=== PATIENT | female | born 1960 | race Caucasian/White ===

== ENCOUNTER 2019-05-10 05:42 | Emergency (ER) | payer OTHER, SELFPAY ==
[2019-05-10 05:47] VITALS: BP 101/65; PULSE 79; RESP 18; TEMP 37.5; O2SAT 90; BMI 21.5
--- NOTE | 2019-05-10 05:51 | ED_ITS ---
Entered by Lisy Thompson, acting as scribe for Deonte Delgado MD May 10, 2019 05:42 HPI - Fever General: Chief Complaint: Fever Stated Complaint: FLU SYMPTOMS Time Seen by Provider: 05/10/19 05:51 Source: patient Mode of arrival: ambulatory Limitations: no limitations History of Present Illness: HPI Narrative: 58 yo f came to the er pov for fever, cough and body aches. Onset was 4 days ago. Pt states that she hurts all over. She denies any shortness of breath. She has had some nausea along with diarrhea. She denies any worsening improving factors. MD elicited complaint: fever Onset (ago): day(s) (4 days ago) Exacerbating factors: nothing Relieving factors: nothing Associated symptoms: Reports cough, diarrhea, nausea, vomiting and other (fever, body aches); Deny abdominal pain, chest pain, dysuria or headache(s) Treatments prior to arrival fever: acetaminophen and ibuprofen Review of Systems General: Reports: other (negative unless marked) Const: Reports: fever and body aches Eyes: Denies: blurry vision or eye discomfort ENMT: Denies: throat pain or dental pain Card: Denies: chest pain Resp: Reports: non-productive cough GI: Reports: nausea, vomiting and diarrhea; Denies: abdominal pain : Denies: painful urination Musc: Denies: neck pain or back pain Skin/Breast: Denies: rash Neuro: Denies: headache Psych: Denies: depression Pancho/Lymph: Denies: easy bruising All/Imm: Denies: hives PFSH ED PFSH: Social History Smoking and tobacco status: current every day smoker Physical Exam Narrative: EXAM NARRATIVE: normal Const: COMMON NORMALS: no apparent distress, oriented x3 and healthy appearing HENMT: COMMON NORMALS: normocephalic and head/scalp atraumatic HEAD & SCALP: normocephalic and atraumatic Eye: COMMON NORMALS: PERRL and EOMs intact bilaterally PUPIL: Yes PERRL Neck/C-Spine: COMMON NORMALS: full ROM and supple Chest: COMMONS NORMALS: inspection of chest normal and palpation of chest normal Resp: COMMON NORMALS: normal respiratory effort, no retractions, no use of accessory muscles and clear to auscultation bilaterally AUSCULTATION: clear to auscultation bilaterally Cardio: COMMON NORMALS: regular rate, regular rhythm and no murmurs RATE: regular rate RHYTHM: regular rhythm GI: COMMON NORMALS: normal to inspection, nondistended, normoactive bowel sounds, soft to palpation, non-tender and no masses PALPATION: Yes soft Extremity: COMMON NORMALS: normal to inspection and full ROM Neuro: COMMON NORMALS: oriented x3, moves all extremities and no focal motor deficits Psych: COMMON NORMALS: mental status grossly normal, thought process normal and cooperative THOUGHT PROCESS: normal thought process Skin: COMMON NORMALS: no rashes or lesions noted and no wounds GENERAL SKIN EXAM: no rashes or lesions noted Course Vital Signs: Vital signs: Vital Signs Temperature 99.5 F 05/10/19 05:47 Pulse Rate 75 05/10/19 07:38 Respiratory Rate 15 05/10/19 07:38 Blood Pressure 114/74 05/10/19 07:38 Pulse Oximetry 94 05/10/19 07:38 MDM - Fever MDM Narrative: Medical decision making narrative: Patient presents here with fever along with body aches and does have influenza. Patient has no signs of sepsis. White count is slightly low but blood pressure is normal here. X-ray shows no signs of pneumonia. Did offer her Tamiflu and she is to follow-up with primary care doctor for repeat blood work next week and she is return to ER if worsening. Patient understands and agrees to plan. Lab Data: Labs: Lab Results 05/10/19 05/10/19 05/10/19 Range/Units 05:55 06:36 06:36 WBC 2.6 L (4.0-10.0) 10^3/ uL RBC 4.59 (4.1-5.3) 10^6/u L Hgb 14.0 (11.5-15.3) g/dL Hct 42.6 (37.0-47.0) % MCV 92.8 (81-99) fL MCH 30.5 (28.0-34.0) pg MCHC 32.9 (30.0-36.0) g/dL RDW 12.0 L (12.1-15.1) % Plt Count 145 (130-400) 10^3/c mm MPV 10.0 (7.4-10.4) fL Neut % (Auto) 50.3 % Lymph % (Auto) 40.8 % [place] % (Auto) 8.5 % Eos % (Auto) 0.0 % Baso % (Auto) 0.4 % Neut # (Auto) 1.3 L (1.8-7.7) 10^3/u L Lymph # (Auto) 1.1 (0.8-4.8) 10^3/u L [place] # (Auto) 0.2 (0.2-0.9) 10^3/u L Eos # (Auto) 0.0 (0.0-0.8) 10^3/u L Baso # (Auto) 0.0 (0.0-0.1) 10^3/u L Nucleated RBC % (a uto) 0 % Nucleated RBCs # 0.0 /100WBC Sodium 136 (136-145) mmol/L Potassium 4.5 (3.5-5.1) mmol/L Chloride 102 (98-107) mmol/L Carbon Dioxide 22 (22-29) mmol/L Anion Gap 16.5 (5-19) BUN 10 (6-20) mg/dL Creatinine 0.9 (0.5-0.9) mg/dL GFR Calculation 64.5 L (90-130) mL/min Glucose 115 (65-115) mg/dL Calculated Osmolal ity 279 L (285-295) mOsm/k g Calcium 9.0 (8.5-10.5) mg/dL Influenza Type A A g Negative (Negative) POC Influenza B Ag Positive H (Negative) Imaging Data^: CXR: My impression: no acute abnormality Discharge Plan Discharge Patient Disposition: Home, Self-Care Clinical Impression: Influenza Condition: Stable Prescriptions: New Tamiflu 75 mg capsule 75 mg PO BID 5 Days Qty: 10 RF: 0 Discharge Orders: Discharge Order (Routine); Ordered 05/10/19 Ordered By: Deonte Delgado Referrals: Agustin Wright, [Primary Care Provider] - 4-7 days Discharge Diet: Advance as tolerated Discharge Activity: Resume usual activity Patient Instructions: Influenza (ED) Discharge Date/Time: 05/10/19 07:30 Coding Level of Care Code ED Garbage Pick Up Worker for g Fwd The documentation recorded by the Jay goodwin Stephanie Lyn, accurately reflects the service I personally performed and the decisions made by , Deonte Delgado MD May 10, 2019 05:42
--- NOTE | 2019-05-10 05:56 | XR_ITS ---
WS: [id number] XR chest 2V* [id number] REASON FOR EXAM: cough FINDINGS: The heart and mediastinal interfaces were normal. The lung linares are well aerated. No pneumonia, pleural effusion, pulmonary edema, or mass effect. Th ere is evidence of small granuloma in the right hilum well calcified. The hilum and apices are normal. No osseous abnormalities. XR/XR chest 2V* [id number] IMPRESSION: Negative chest for active pathology.
[2019-05-10] MEDS: acetaminophen 500 mg Tablet 1000 MG PO (06:01)
[2019-05-10 06:38] LABS: Influenza A by IFA Negative (Negative); Influenza B by IFA Positive (Negative)
[2019-05-10 06:42] LABS: Basophils % 0.4 %; Hematocrit 42.6 % (37.0-47.0); Lymphocytes # 1.1 10^3/uL (0.8-4.8); Lymphocytes % 40.8 %; Mean Corpuscular HGB Conc 32.9 g/dL (30.0-36.0); Mean Corpuscular Hemoglobin 30.5 pg (28.0-34.0); Mean Corpuscular Volume 92.8 fL (81-99); Monocytes # 0.2 10^3/uL (0.2-0.9); Monocytes % 8.5 %; Neutrophils # 1.3 10^3/uL (1.8-7.7); Neutrophils % 50.3 %; Nucleated Red Blood Cells % 0 %; Platelet Count 145 10^3/cmm (130-400); Red Blood Count 4.59 10^6/uL (4.1-5.3); White Blood Count 2.6 10^3/uL (4.0-10.0)
[2019-05-10] MEDS: sodium chloride 0.9% 1,000 ML 999 ML IV (06:46)
[2019-05-10 06:56] LABS: Anion Gap 16.5 (5-19); Blood Urea Nitrogen 10 mg/dL (6-20); Carbon Dioxide 22 mmol/L (22-29); Chloride 102 mmol/L (98-107); Glomerular Filtration Rate 64.5 mL/min (90-130); Glucose 115 mg/dL (65-115); Osmolality Calculated 279 mOsm/kg (285-295); Potassium 4.5 mmol/L (3.5-5.1); Sodium 136 mmol/L (136-145)
[2019-05-10 07:38] VITALS: BP 114/74; PULSE 75; RESP 15; O2SAT 94
== END 2019-05-10 07:30 | disposition home or self-care (01) ==
PROVIDERS: Emergency Provider Emergency Medicine; Family Provider Family Medicine; PCP Family Medicine
DX: J11.1 Influenza due to unidentified influenza virus with other respiratory manifestations (principal); F17.200 Nicotine dependence, unspecified, uncomplicated
CPT/HCPCS: 71046; 80048; 85025; 87804; 96360; 99282; 99283; J7030

== ENCOUNTER 2019-05-20 11:50 | Emergency (ER) | payer OTHER, SELFPAY ==
[2019-05-20 12:10] VITALS: BP 103/86; PULSE 79; RESP 16; TEMP 37.1; O2SAT 96; BMI 22.1
--- NOTE | 2019-05-20 12:55 | ED_ITS ---
Entered by [id number], acting as scribe for Cory Gilliland MD May 20, 2019 11:50 HPI - Extremity Problem General: Chief complaint: Extremity Problem,Nontraumatic Stated complaint: right leg pain, Time Seen by Provider: 05/20/19 12:48 Source: patient and family Mode of arrival: ambulatory Limitations: no limitations History of Present Illness: MD Complaint: extremity pain Onset (ago): day(s) Pain Consistency: constant Location: right and lower extremity Severity scale (1-10): 8 Quality: aching and other (crushing) Radiation: none Relieving factors: movement Exacerbating factors: range of motion and palpation Associated symptoms: Reports fever(s) (reports just had the flu then had bronchitis after); Deny arthralgias, chest pain, rash or short of breath Context: recent illness and other (Lupus; no hx o dvt) Review of Systems General: Reports: 10 or more systems reviewed and unremarkable except in HPI and below Const: Reports: fever (reports just had the flu then had bronchitis after); Denies: chills, body aches, change in weight, fatigue, malaise, night sweats or diaphoresis ENMT: Denies: throat pain Card: Denies: chest pain, palpitations, edema, swelling of feet/ankles, lightheadedness, syncope, pre-syncope or shortness of breath on exertion Resp: Reports: productive cough; Denies: shortness of breath, pain on inspiration or coughing up blood GI: Denies: abdominal pain, nausea, vomiting, vomiting blood, diarrhea or constipation Musc: Reports: extremity pain, muscle cramps and other (pain in right calf, arch of right foot, behind right knee); Denies: extremity swelling, joint pain, joint swelling, redness, limited range of motion or muscle weakness Skin/Breast: Denies: rash, itching, redness, skin pain, skin tenderness, skin swelling or sores Neuro: Denies: numbness in extremities, weakness in extremities, changes in sensation, lack of coordination, difficulty walking, frequent falls, dizziness, seizure-like activity, involuntary movements or restless legs PFSH ED PFSH: Social History Smoking and tobacco status: current every day smoker Physical Exam Const: COMMON NORMALS: no apparent distress (moderate distress), average body habitus, oriented x3, no limitations, healthy appearing, alert and well nourished EXAM LIMITATIONS: no altered mental status GENERAL APPEARANCE: cooperative, well kempt and well developed NUTRITIONAL APPEARANCE: not obese and not overweight ORIENTATION/CONSCIOUSNESS: Yes awake HENMT: COMMON NORMALS: normocephalic, head/scalp atraumatic, external ears normal and external nose normal HEAD & SCALP: normal to inspection, normocephalic and atraumatic FACE & SINUS: face symmetric NOSE: external nose normal EXTERNAL EAR: Yes external ears normal MOUTH: lip normal; no muffled voice Eye: COMMON NORMALS: EOMs intact bilaterally and conjunctivae normal GENERAL EYE: normal appearance of both eyes CONJUNCTIVA: Yes conjunctivae normal Neck/C-Spine: COMMON NORMALS: no JVD GENERAL: Yes normal visual inspection and Yes trachea midline Resp: COMMON NORMALS: normal respiratory effort, no use of accessory muscles and clear to auscultation bilaterally EFFORT & INSPECTION: Yes able to speak in complete sentences and Yes symmetric chest movement AUSCULTATION: clear to auscultation bilaterally Cardio: COMMON NORMALS: no JVD, regular rate and regular rhythm RATE: regular rate RHYTHM: regular rhythm PERIPHERAL PULSES: radial pulses present GI: COMMON NORMALS: soft to palpation INSPECTION: Yes normal to inspection PALPATION: Yes soft, No tender and No guarding Back/Pelvis: COMMON NORMALS: thoraco-lumbar ROM normal Extremity: COMMON NORMALS: normal to inspection, full ROM, normal capillary refill, no joint enlargement, no clubbing, cyanosis or edema and no pedal edema; negative for no calf tenderness (right calf tenderness--compartment soft and not edematous) GENERAL: Yes normal exam except as noted, Yes calf tenderness, No cyanosis, No deformity, No edema, No mottling, No pallor and No pulses abnormal OTHER: Patient has painless range of motion of the right hip, right knee, right ankle. She has normal strength examination on hip flexion, extension, knee flexion, dorsiflexion and plantar flexion of the foot. Great toe dorsiflexion is normal. Sensation is normal to light touch. DP and PT pulses are easily palpable. No swelling, no redness, no wounds. No varicose veins. Calf on the right side is tender to palpation. She complains of pain in the right arch but it is not reproducible on palpation. No obvious masses in the popliteal region. Neuro: COMMON NORMALS: oriented x3 SENSORIUM/ORIENTATION: Yes alert Psych: COMMON NORMALS: mental status grossly normal, thought process normal, cooperative, affect normal and speech normal APPEARANCE: Yes well kempt SPEECH: Yes normal speech THOUGHT PROCESS: normal thought process Skin: COMMON NORMALS: no rashes or lesions noted, no wounds, skin turgor normal, no jaundice and no mottling GENERAL SKIN EXAM: no rashes or lesions noted and turgor normal Course Vital Signs: Vital signs: Vital Signs Temperature 98.8 F 05/20/19 12:10 Pulse Rate 79 05/20/19 12:10 Respiratory Rate 16 05/20/19 12:10 Blood Pressure 103/86 05/20/19 12:10 Pulse Oximetry 97 05/20/19 12:57 MDM - Extremity (Nontraumatic) MDM Narrative: Medical decision making narrative: 58-year-old female with moderate to severe pain in the right lower extremity. Her pain is in typical areas of DVT with the exception of her right arch which is 1 of her main complaints. There is some myalgia on palpation of the right calf. There are no findings objectively of DVT including no redness, warmth, swelling. There is no evidence of peripheral arterial disease. There is no evidence of joint disease. No evidence of soft tissue injury. I suspect that this is a neuropathy or p erhaps may be some myalgia residual from her influenza. Patient does have lupus and perhaps there is a related myositis. D-dimer was elevated but right lower extremity ultrasound was negative for DVT. White blood cell count was normal. CRP was normal. CK was normal. Patient was given gabapentin and aspirin with moderate relief of symptoms. Unclear etiology but suspect neuropathy. There is no neurovascular compromise. X-ray of the tibia and fibula was unremarkable. Plan to discharge the patient with gabapentin and follow-up outpatient. Lab Data: Labs: Lab Results 05/20/19 05/20/19 05/20/19 Range/Units 13:44 13:44 13:44 WBC 5.5 (4.0-10.0) 10^3/ uL RBC 4.34 (4.1-5.3) 10^6/u L Hgb 12.8 (11.5-15.3) g/dL Hct 39.4 (37.0-47.0) % MCV 90.8 (81-99) fL MCH 29.5 (28.0-34.0) pg MCHC 32.5 (30.0-36.0) g/dL RDW 12.0 L (12.1-15.1) % Plt Count 316 (130-400) 10^3/c mm MPV 9.6 (7.4-10.4) fL Neut % (Auto) 59.9 % Lymph % (Auto) 34.0 % [place] % (Auto) 5.3 % Eos % (Auto) 0.0 % Baso % (Auto) 0.4 % Neut # (Auto) 3.3 (1.8-7.7) 10^3/u L Lymph # (Auto) 1.9 (0.8-4.8) 10^3/u L [place] # (Auto) 0.3 (0.2-0.9) 10^3/u L Eos # (Auto) 0.0 (0.0-0.8) 10^3/u L Baso # (Auto) 0.0 (0.0-0.1) 10^3/u L Nucleated RBC % (a uto) 0 % Nucleated RBCs # 0.0 /100WBC D-Dimer 1.88 H (0-0.59) ug/mIFE U Sodium 142 (136-145) mmol/L Potassium 4.5 (3.5-5.1) mmol/L Chloride 105 (98-107) mmol/L Carbon Dioxide 25 (22-29) mmol/L Anion Gap 16.5 (5-19) BUN 19 (6-20) mg/dL Creatinine 0.8 (0.5-0.9) mg/dL GFR Calculation 73.9 L (90-130) mL/min Glucose 134 H (65-115) mg/dL Calculated Osmolal ity 292 (285-295) mOsm/k g Calcium 9.7 (8.5-10.5) mg/dL Magnesium 2.2 (1.7-2.3) mg/dL Creatine Kinase 162 (26-192) U/L C-Reactive Protein 2.3 (0.0-4.9) mg/L Coding Level of Care Code ED Sweet Dough Mixer for Chg Fwd The documentation recorded by the buddy, [id number], accurately reflects the service I personally performed and the decisions made by me, Cory Gilliland MD May 20, 2019 11:50
--- NOTE | 2019-05-20 12:56 | ED_ITS ---
Entered by Anna Donnelly, acting as scribe for Cory Gilliland MD May 20, 2019 11:50 HPI - Extremity Problem General: Chief complaint: Extremity Problem,Nontraumatic Stated complaint: right leg pain, Time Seen by Provider: 05/20/19 12:48 Source: patient and family Mode of arrival: ambulatory Limitations: no limitations History of Present Illness: MD Complaint: extremity pain (Right leg) Onset (ago): day(s) (yesterday) Pain Consistency: constant Location: right and lower extremity Radiation: none Relieving factors: medication (aspirin) Exacerbating factors: walking and exertion Associated symptoms: Reports fever(s) (since Monday) and other (fever from flu); Deny chest pain or rash Review of Systems General: Reports: 10 or more systems reviewed and unremarkable except in HPI and below Const: Reports: fever (since Monday); Denies: chills Card: Denies: chest pain, palpitations, lightheadedness, syncope or shortness of breath when lying down Resp: Denies: shortness of breath, stridor, pain on inspiration or chest congestion GI: Denies: abdominal pain, difficulty swallowing, heartburn/indigestion, constipation or bloating Musc: Reports: extremity pain Skin/Breast: Reports: skin tenderness; Denies: rash, itching, redness or sensitivity to light PFSH ED PFSH: Social History Smoking and tobacco status: current every day smoker Physical Exam Narrative: EXAM NARRATIVE: negative straight leg raise. Const: COMMON NORMALS: no limitations, alert and well nourished EXAM LIMITATIONS: no altered mental status GENERAL APPEARANCE: cooperative and well developed ORIENTATION/CONSCIOUSNESS: Yes awake; not confused HENMT: COMMON NORMALS: normocephalic, head/scalp atraumatic, external ears normal and external nose normal HEAD & SCALP: normal to inspection, normocephalic and atraumatic FACE & SINUS: face symmetric NOSE: external nose normal EXTERNAL EAR: Yes external ears normal MOUTH: lip normal; no muffled voice Eye: COMMON NORMALS: EOMs intact bilaterally and conjunctivae normal GENERAL EYE: normal appearance of both eyes CONJUNCTIVA: Yes conjunctivae normal Neck/C-Spine: COMMON NORMALS: no JVD GENERAL: Yes normal visual inspection and Yes trachea midline Resp: COMMON NORMALS: normal respiratory effort, no use of accessory muscles and clear to auscultation bilaterally EFFORT & INSPECTION: Yes able to speak in complete sentences and Yes symmetric chest movement AUSCULTATION: clear to auscultation bilaterally Cardio: COMMON NORMALS: no JVD, regular rate and regular rhythm RATE: regular rate RHYTHM: regular rhythm PERIPHERAL PULSES: radial pulses present GI: COMMON NORMALS: soft to palpation INSPECTION: Yes normal to inspection PALPATION: Yes soft, No tender and No guarding : COMMON NORMALS: Yes no CVA tenderness BLADDER/KIDNEY EXAM: Yes no CVA tenderness Back/Pelvis: COMMON NORMALS: no CVA tenderness, thoracic and lumbar spine normal to inspection, no thoracic nor lumbar tenderness, thoraco-lumbar ROM normal and straight leg raise negative bilaterally Extremity: RIGHT LOWER EXTREMITY: Yes knee joint (behind R knee tenderness), Yes lower leg (tenderness) and Yes foot & digits (R arch tenderness) Neuro: COMMON NORMALS: moves all extremities, no focal motor deficits and no sensory deficits noted SENSORIUM/ORIENTATION: Yes alert Psych: COMMON NORMALS: mental status grossly normal, thought process normal, cooperative, affect normal and speech normal SPEECH: Yes normal speech THOUGHT PROCESS: normal thought process Skin: COMMON NORMALS: no rashes or lesions noted, skin turgor normal and no jaundice GENERAL SKIN EXAM: no rashes or lesions noted and turgor normal Course Vital Signs: Vital signs: Vital Signs Temperature 98.8 F 05/20/19 12:10 Pulse Rate 79 05/20/19 12:10 Respiratory Rate 16 05/20/19 12:10 Blood Pressure 103/86 05/20/19 12:10 Pulse Oximetry 97 05/20/19 12:57 MDM - Extremity (Nontraumatic) MDM Narrative: Medical decision making narrative: No evidence of bony lesions, acute neurovascular compromise, DVT, inflammatory etiology, vasculitis, or acute soft tissue injury. Suspect neuropathic pain or possibly residual myositis or muscle cramping Lab Data: Labs: Lab Results 05/20/19 05/20/19 05/20/19 Range/Units 13:44 13:44 13:44 WBC 5.5 (4.0-10.0) 10^3/ uL RBC 4.34 (4.1-5.3) 10^6/u L Hgb 12.8 (11.5-15.3) g/dL Hct 39.4 (37.0-47.0) % MCV 90.8 (81-99) fL MCH 29.5 (28.0-34.0) pg MCHC 32.5 (30.0-36.0) g/dL RDW 12.0 L (12.1-15.1) % Plt Count 316 (130-400) 10^3/c mm MPV 9.6 (7.4-10.4) fL Neut % (Auto) 59.9 % Lymph % (Auto) 34.0 % [place] % (Auto) 5.3 % Eos % (Auto) 0.0 % Baso % (Auto) 0.4 % Neut # (Auto) 3.3 (1.8-7.7) 10^3/u L Lymph # (Auto) 1.9 (0.8-4.8) 10^3/u L [place] # (Auto) 0.3 (0.2-0.9) 10^3/u L Eos # (Auto) 0.0 (0.0-0.8) 10^3/u L Baso # (Auto) 0.0 (0.0-0.1) 10^3/u L Nucleated RBC % (a uto) 0 % Nucleated RBCs # 0.0 /100WBC D-Dimer 1.88 H (0-0.59) ug/mIFE U Sodium 142 (136-145) mmol/L Potassium 4.5 (3.5-5.1) mmol/L Chloride 105 (98-107) mmol/L Carbon Dioxide 25 (22-29) mmol/L Anion Gap 16.5 (5-19) BUN 19 (6-20) mg/dL Creatinine 0.8 (0.5-0.9) mg/dL GFR Calculation 73.9 L (90-130) mL/min Glucose 134 H (65-115) mg/dL Calculated Osmolal ity 292 (285-295) mOsm/k g Calcium 9.7 (8.5-10.5) mg/dL Magnesium 2.2 (1.7-2.3) mg/dL Creatine Kinase 162 (26-192) U/L C-Reactive Protein 2.3 (0.0-4.9) mg/L Discharge Plan Discharge Clinical Impression: Acute pain of right lower extremity, Neuropathic pain Condition: Stable Prescriptions: New gabapentin 100 mg capsule 100 mg PO TID 14 Days Qty: 42 RF: 0 Referrals: Agustin Wright, [Primary Care Provider] - 1-3 days (F/u leg pain and initiation of gabapentin. Unclear etiology; may need neuro w/u.) Discharge Diet: Usual diet Discharge Activity: Resume usual activity Patient Instructions: Leg Cramps (ED), Peripheral Neuropathy (ED) Coding Level of Care Code ED Workers Compensation Examiner for Chg Fwd Exam Comprehensive The documentation recorded by the Andrzej goodwin Bridget Annette, accurately reflects the service I personally performed and the decisions made by , Cory Gilliland MD May 20, 2019 11:50
[2019-05-20 12:57] VITALS: O2SAT 97
--- NOTE | 2019-05-20 13:22 | XR_ITS ---
WS: [id number] XR tibia fibula RT 2V [id number] REASON FOR EXAM: pain, unclear source FINDINGS: The tibia, fibula were normal extending down to the ankle and to the knee. No fractures or other dyscrasias. No soft tissue masses or calcification. XR/XR tibia fibula RT 2V [id number] IMPRESSION: Negative tibia-fibula study.
[2019-05-20 13:51] LABS: Basophils % 0.4 %; Hematocrit 39.4 % (37.0-47.0); Hemoglobin 12.8 g/dL (11.5-15.3); Lymphocytes # 1.9 10^3/uL (0.8-4.8); Mean Corpuscular HGB Conc 32.5 g/dL (30.0-36.0); Mean Corpuscular Hemoglobin 29.5 pg (28.0-34.0); Mean Corpuscular Volume 90.8 fL (81-99); Mean Platelet Volume 9.6 fL (7.4-10.4); Monocytes # 0.3 10^3/uL (0.2-0.9); Monocytes % 5.3 %; Neutrophils # 3.3 10^3/uL (1.8-7.7); Neutrophils % 59.9 %; Nucleated Red Blood Cells % 0 %; Platelet Count 316 10^3/cmm (130-400); Red Blood Count 4.34 10^6/uL (4.1-5.3); White Blood Count 5.5 10^3/uL (4.0-10.0)
[2019-05-20] MEDS: sodium chloride 0.9% 1,000 ML 999 ML IV (13:52)
[2019-05-20] MEDS: gabapentin 100 mg Capsule PO (13:53)
[2019-05-20 14:03] LABS: D Dimer 1.88 ug/mIFEU (0-0.59)
[2019-05-20 14:13] LABS: Anion Gap 16.5 (5-19); Blood Urea Nitrogen 19 mg/dL (6-20); C Reactive Protein 2.3 mg/L (0.0-4.9); Calcium 9.7 mg/dL (8.5-10.5); Carbon Dioxide 25 mmol/L (22-29); Chloride 105 mmol/L (98-107); Creatine Phosphokinase 162 U/L (26-192); Glomerular Filtration Rate 73.9 mL/min (90-130); Glucose 134 mg/dL (65-115); Magnesium 2.2 mg/dL (1.7-2.3); Osmolality Calculated 292 mOsm/kg (285-295); Potassium 4.5 mmol/L (3.5-5.1); Sodium 142 mmol/L (136-145)
--- NOTE | 2019-05-20 14:33 | USCV_ITS ---
Sondra Duval Age: 58 Gender: F : 1960 Exam Date: 05/20/2019 15:19 Ordering Phys: Cory Gilliland MD Technologist: [place] [facility] [place]ication: RT LEG PAIN AND EDEMA HISTORY: Lower extremity swelling. Lower extremity pain. PROCEDURES: Venous duplex imaging was performed in only the right lower extremity. The following venous structures were evaluated: common femoral vein, profunda vein, proximal portion of the greater saphenous vein, superficial femoral vein, and the popliteal vein. In addition, the posterior tibial and peroneal trunk were evaluated. On the right side, the common femoral, superficial femoral, profunda femoral, popliteal, posterior tibial, greater saphenous veins and the peroneal trunk were identified and interrogated in the standard fashion. These veins were found to be easily compressible with spontaneous blood flow. No evidence of insufficiency or thrombus noted. FINDINGS: Normal 2-D Doppler and augmentation and compressibility throughout the lower extremity venous structures. Additional imaging through the proximal calf veins also reveals no thrombus. Limited evaluation of the greater saphenous vein is patent with no thrombus.. CONCLUSIONS Negative right lower extremity deep venous Doppler ultrasound. Dr. Suzanna Lund MD (Electronically Signed) Final Date: 20 May 2019 16:13 S
[2019-05-20] MEDS: aspirin 81 mg Chew Tablet 324 MG PO (15:32)
[2019-05-20 17:14] VITALS: BP 121/69; PULSE 68; RESP 17; O2SAT 97
== END 2019-05-20 17:20 | disposition home or self-care (01) ==
PROVIDERS: Emergency Provider Emergency Medicine; Family Provider Family Medicine; PCP Family Medicine
DX: G57.91 Unspecified mononeuropathy of right lower limb (principal); F17.200 Nicotine dependence, unspecified, uncomplicated
CPT/HCPCS: 36415; 73590; 80048; 82550; 83735; 85025; 85378; 86140; 93971; 96360; 99281; 99283; J7030

== ENCOUNTER → 2019-11-21 10:42 | Outpatient (BNVA) | payer OTHER, SELFPAY | PROVIDERS: Family Provider Family Medicine; PCP Family Medicine; Visit Provider Internal Medicine | DX: M06.9 Rheumatoid arthritis, unspecified (principal); Z11.59 Encounter for screening for other viral diseases; Z11.1 Encounter for screening for respiratory tuberculosis; Z79.899 Other long term (current) drug therapy; M35.00 Sjogren syndrome, unspecified; R21 Rash and other nonspecific skin eruption; F17.210 Nicotine dependence, cigarettes, uncomplicated | CPT/HCPCS: 80053; 81003; 83516; 85025; 85651; 86140; 86480; 86704; 86803; 86812; 87340; 99213 ==

== ENCOUNTER 2019-11-22 09:00 | Outpatient (CLI) | payer OTHER, SELFPAY ==
--- NOTE | 2019-11-22 09:10 | XR_ITS ---
WS: [id number] FOOT LEFT TECHNIQUE: 2 views of the left foot CLINICAL INFORMATION: foot pain COMPARISON: None. FINDINGS: No evidence of acute fracture or dislocation. Normal tarsal metatarsal alignment. Normal calcaneus. N ormal visualized talar dome. No acute findings. XR/XR foot LT 2V [id number] IMPRESSION: Normal left foot.
--- NOTE | 2019-11-22 09:10 | XR_ITS ---
WS: [id number] FOOT RIGHT TECHNIQUE: 2 views of the right foot CLINICAL INFORMATION: foot pain COMPARISON: None. 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 Dorsal hypertrophic spurring . Mild joint space narrowing third, fourth and fifth digits at the PIP and DIP joints. Normal metatar sals. XR/XR foot RT 2V [id number] IMPRESSION: 1. 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 2. Mild joint space narrowing third fourth and fifth digits at the PIP and DIP joints.
--- NOTE | 2019-11-22 09:10 | XR_ITS ---
WS: [id number] TECHNIQUE: 2 views of the left hand CLINICAL INFORMATION: hand pain COMPARISON: None. FINDINGS: Normal metacarpals. Normal MCP joint. Metacarpal heads are normal in appearance. Normal PIP and DIP j oints. No evidence of acute fracture or dislocation. Radiocarpal joint: Normal. Carpal bones: Normal. XR/XR hand LT 2V [id number] IMPRESSION: Normal left hand.
--- NOTE | 2019-11-22 09:10 | XR_ITS ---
WS: [id number] TECHNIQUE: 2 views of the right hand CLINICAL INFORMATION: hand pain COMPARISON: None. FINDINGS: Normal metacarpals. Normal MCP joint. Metacarpal heads are normal in appearance. Normal PIP and DIP j oints. No evidence of acute fracture or dislocation. Tiny amount of hypertrophic spurring along the P IP and DIP joints Radiocarpal joint: Normal. Carpal bones: Normal. XR/XR hand RT 2V [id number] IMPRESSION: Tiny amount hypertrophic spurring along the PIP and DIP joints. No erosive davey ges.
== END 2019-11-22 09:01 | disposition home or self-care (01) ==
PROVIDERS: Family Provider Family Medicine; PCP Family Medicine; Visit Provider Internal Medicine
DX: M79.672 Pain in left foot (principal); M79.671 Pain in right foot; M79.642 Pain in left hand; M79.641 Pain in right hand; M19.071 Primary osteoarthritis, right ankle and foot
CPT/HCPCS: 73120; 73620

== ENCOUNTER 2019-12-24 10:48 | Outpatient (CLI) | payer OTHER, SELFPAY ==
--- NOTE | 2019-12-24 11:12 | MM_ITS ---
WS: [id number] BILATERAL DIGITAL DIAGNOSTIC MAMMOGRAM MAMMOGRAPHY WITH CAD CLINICAL INFORMATION: LUMP OR MASS IN BREAST COMPARISON: November 28, 2017 TECHNIQUE: Bilateral CC, MLO, and ML views. FINDINGS: The breasts are composed of heterogeneous fibroglandular density, which can limit the detection of sm all underlying mass lesions. Punctate and lucent centered calcifications. Palpable marker left breast . No definite underlying mammographic abnormalities. Ultrasound is pending. Right breast appears unchanged. . ULTRASOUND BREAST LEFT TECHNIQUE: Ultrasound left breast focused area of concern. CLINICAL INFORMATION: LUMP OR MASS IN BREAST COMPARISON: FINDINGS: Ultrasound left breast at the 1:00 position in patient directed area. In the area of concern is a hyp oechoic irregular lesion Talller than wide with irregular margins. This measures approximately 3.3 x 3.6x 2.7 mm. Recommend further evaluation with ultrasound-guided biopsy. MM/[place] [id number] IMPRESSION: BI-RADS: 4-Suspicious Finding-Biopsy Should Be Considered FOLLOW UP: US Guided Biopsy Recommended
--- NOTE | 2019-12-24 11:17 | US_ITS ---
WS: [id number] BILATERAL DIGITAL DIAGNOSTIC MAMMOGRAM MAMMOGRAPHY WITH CAD CLINICAL INFORMATION: LUMP OR MASS IN BREAST COMPARISON: November 28, 2017 TECHNIQUE: Bilateral CC, MLO, and ML views. FINDINGS: The breasts are composed of heterogeneous fibroglandular density, which can limit the detection of sm all underlying mass lesions. Punctate and lucent centered calcifications. Palpable marker left breast . No definite underlying mammographic abnormalities. Ultrasound is pending. Right breast appears unchanged. . ULTRASOUND BREAST LEFT TECHNIQUE: Ultrasound left breast focused area of concern. CLINICAL INFORMATION: LUMP OR MASS IN BREAST COMPARISON: FINDINGS: Ultrasound left breast at the 1:00 position in patient directed area. In the area of concern is a hyp oechoic irregular lesion Talller than wide with irregular margins. This measures approximately 3.3 x 3.6x 2.7 mm. Recommend further evaluation with ultrasound-guided biopsy. US/US breast LT limited* [id number] IMPRESSION: BI-RADS: 4-Suspicious Finding-Biopsy Should Be Considered FOLLOW UP: US Guided Biopsy Recommended
== END 2019-12-24 10:49 | disposition home or self-care (01) ==
LOC: RADSHAW 10:56
PROVIDERS: PCP Family Medicine; Visit Provider Family Medicine
DX: N63.21 Unspecified lump in the left breast, upper outer quadrant (principal)
CPT/HCPCS: 76642; 77066

== ENCOUNTER → 2019-12-25 10:33 | Outpatient (BNVA) | payer OTHER, SELFPAY | PROVIDERS: PCP Family Medicine; Visit Provider Internal Medicine | DX: Z79.899 Other long term (current) drug therapy (principal) | CPT/HCPCS: 85025 ==

== ENCOUNTER 2020-01-21 13:11 | Outpatient (CLI) | payer OTHER, SELFPAY ==
--- NOTE | 2020-01-21 | US_ITS ---
WS: [id number] ULTRASOUND-GUIDED LEFT BREAST BIOPSY CLINICAL INFORMATION: LEFT BREAST MASS COMPARISON: None. FINDINGS: The procedure including risks, benefits, and complications were discussed with the patient who agreed to proceed. Using sterile technique patient was prepped and draped in the usual sterile fashion. Aft er 1% lidocaine utilizing real-time ultrasound guidance 5 14-gauge cores were obtained of the left br east lesion at the 1 o'clock position. Subsequently a titanium clip was placed in the biopsy cavity. No immediate complications. Pathology demonstrates Breast, left, mass at 1 o'clock, biopsy: -Mammary duct ectasia with foamy histiocytes. -No malignancy identified. US/[place] [id number] IMPRESSION: 1. Uncomplicated ultrasound-guided left breast biopsy. 2. The pathology demonstrates benign breast tissue. No malignancy identified. BI-RADS: 2-Benign FOLLOW UP: 6 Month Follow-up RECOMMEND 6 MONTH FOLLOW-UP LEFT BREAST DIAGNOSTIC MAMMOGRAM AND ULTRASOUND TO CONFIRM STABILITY.
== END 2020-01-21 13:12 | disposition home or self-care (01) ==
LOC: RAD 13:16
PROVIDERS: PCP Family Medicine; Visit Provider Family Medicine
DX: R92.8 Other abnormal and inconclusive findings on diagnostic imaging of breast (principal); N60.42 Mammary duct ectasia of left breast
CPT/HCPCS: 19083; 88305

== ENCOUNTER → 2020-02-19 08:48 | Outpatient (BNVA) | payer OTHER, SELFPAY | PROVIDERS: PCP Family Medicine; Visit Provider Internal Medicine | DX: M06.9 Rheumatoid arthritis, unspecified (principal); R76.8 Other specified abnormal immunological findings in serum; Z79.899 Other long term (current) drug therapy; Z11.59 Encounter for screening for other viral diseases; M35.00 Sjogren syndrome, unspecified; F17.210 Nicotine dependence, cigarettes, uncomplicated | CPT/HCPCS: 80053; 85025; 85651; 86140; 86704; 87517; 99214 ==

== ENCOUNTER → 2020-03-02 13:00 | Outpatient (BNVA) | payer OTHER, SELFPAY | PROVIDERS: PCP Family Medicine; Referring Provider Internal Medicine; Visit Provider Dermatology | DX: R21 Rash and other nonspecific skin eruption (principal) | CPT/HCPCS: 87220 ==

== ENCOUNTER → 2020-04-17 07:56 | Outpatient (BNVA) | payer OTHER, SELFPAY | PROVIDERS: PCP Family Medicine; Visit Provider Internal Medicine | DX: M06.9 Rheumatoid arthritis, unspecified (principal); M35.00 Sjogren syndrome, unspecified; R21 Rash and other nonspecific skin eruption; R42 Dizziness and giddiness; G62.9 Polyneuropathy, unspecified; B19.10 Unspecified viral hepatitis B without hepatic coma; F17.210 Nicotine dependence, cigarettes, uncomplicated | CPT/HCPCS: 99214 ==

== ENCOUNTER 2020-04-17 09:49 | Outpatient (CLI) | payer OTHER, SELFPAY ==
--- NOTE | 2020-04-17 10:01 | XR_ITS ---
WS: [id number] Exam: XR hip LT 2-3V wo/w pel* [id number] Date/Time of Exam: 04/17/2020 10:20 AM Reason For Exam: M06.9 - Rheumatoid arthritis, unspecified Findings: No fractures or bone anomalies are noted. No unusual soft tissue masses or calcifications are seen. The bony elements of the hip are in adequate alignment. XR/XR hip LT 2-3V wo/w pel* [id number] IMPRESSION: Negative left hip.
--- NOTE | 2020-04-17 10:01 | XR_ITS ---
WS: [id number] Exam: XR lumbar spine 2-3V* [id number] Date/Time of Exam: 04/17/2020 10:20 AM Reason For Exam: M06.9 - Rheumatoid arthritis, unspecified No acute fracture or dislocation. Disc spaces are preserved. Minimal degenerative anterolisthesis of L3 on L4. Facet DJD at L3-4, L4-5 and L5-S1. Posterior elements are otherwise intact. No significant scoliosis. XR/XR lumbar spine 2-3V* [id number] IMPRESSION: 1. No fracture or malalignment. 2. Minimal degenerative anterolisthesis of L3 on L4. Degenerative changes as ab ove.
--- NOTE | 2020-04-17 10:01 | XR_ITS ---
WS: [id number] Exam: XR hip RT 2-3V wo/w pel* [id number] Date/Time of Exam: 04/17/2020 10:20 AM Reason For Exam: M06.9 - Rheumatoid arthritis, unspecified No fracture or dislocation. The joint compartment is relatively well maintained. Minimal degenerative change of the acetabular rim. Normal soft tissues. XR/XR hip RT 2-3V wo/w pel* [id number] IMPRESSION: 1. No fracture. Minimal degenerative change of the acetabular rim.
[2020-04-17 11:39] LABS: Basophils % 0.3 %; Hematocrit 44.3 % (37.0-47.0); Hemoglobin 14.8 g/dL (11.5-15.3); Lymphocytes # 1.3 10^3/uL (0.8-4.8); Lymphocytes % 20.7 %; Mean Corpuscular HGB Conc 33.4 g/dL (30.0-36.0); Mean Corpuscular Volume 92.9 fL (81-99); Mean Platelet Volume 10.1 fL (7.4-10.4); Monocytes # 0.1 10^3/uL (0.2-0.9); Monocytes % 1.8 %; Neutrophils # 4.81 10^3/uL (1.8-7.7); Nucleated Red Blood Cells % 0 %; Platelet Count 269 10^3/cmm (130-400); Red Blood Count 4.77 10^6/uL (4.1-5.3); Red Cell Distribution Width 11.8 % (12.1-15.1); White Blood Count 6.2 10^3/uL (4.0-10.0)
[2020-04-17 12:54] LABS: Alanine Aminotransferase 15 U/L (0-33); Albumin Level 4.5 g/dL (3.5-5.2); Alkaline Phosphatase 76 IU/L (35-105); Anion Gap 15.7 (5-19); Aspartate Amino Transferase 21 U/L (0-32); Blood Urea Nitrogen 17 mg/dL (6-20); C Reactive Protein 0.7 mg/L (0.0-4.9); Calcium 10.1 mg/dL (8.5-10.5); Carbon Dioxide 25 mmol/L (22-29); Chloride 106 mmol/L (98-107); Creatine Phosphokinase 65 U/L (26-192); Globulin 3.5 g/dL (1.3-4.6); Glomerular Filtration Rate 85.9 mL/min (90-130); Glucose 120 mg/dL (65-115); Osmolality Calculated 297 mOsm/kg (285-295); Potassium 4.7 mmol/L (3.5-5.1); Sodium 142 mmol/L (136-145); Total Bilirubin 0.3 mg/dL (0.15-1.2)
[2020-04-17 16:45] LABS: Erythrocyte Sedimentation Rate 18 mm/hr (0-15)
[2020-04-20 11:57] LABS: Cyclic Citrullinated Peptide <16 UNITS
== END 2020-04-17 09:50 | disposition home or self-care (01) ==
PROVIDERS: PCP Family Medicine; Visit Provider Internal Medicine
DX: M06.9 Rheumatoid arthritis, unspecified (principal); D86.9 Sarcoidosis, unspecified
CPT/HCPCS: 72100; 73502; 80053; 82550; 85025; 85651; 86140; 86431

== ENCOUNTER → 2020-05-08 13:41 | Outpatient (BNVA) | payer OTHER, SELFPAY | PROVIDERS: PCP Family Medicine; Visit Provider Specialist | DX: M54.2 Cervicalgia (principal); M35.9 Systemic involvement of connective tissue, unspecified; G96.00 Cerebrospinal fluid leak, unspecified; M35.00 Sjogren syndrome, unspecified; F17.210 Nicotine dependence, cigarettes, uncomplicated | CPT/HCPCS: 99203; 99204 ==

== ENCOUNTER → 2020-05-20 10:57 | Outpatient (BNVA) | payer OTHER, SELFPAY | PROVIDERS: PCP Family Medicine; Visit Provider Internal Medicine | DX: Z79.899 Other long term (current) drug therapy (principal); M35.00 Sjogren syndrome, unspecified; M06.9 Rheumatoid arthritis, unspecified; M19.90 Unspecified osteoarthritis, unspecified site | CPT/HCPCS: 36415; 80053; 85025; 85651; 86140 ==

== ENCOUNTER 2020-06-08 10:19 | Outpatient (CLI) | payer OTHER, SELFPAY ==
--- NOTE | 2020-06-08 10:30 | MR_ITS ---
WS: [id number] MRI CERVICAL SPINE NONCONTRAST HISTORY: M54.2 - Cervicalgia COMPARISON: None available. Technique: Multiplanar, multisequence noncontrast imaging of the cervical spine. Straightening and slight reversal normal cervical lordosis. Reversal is centered at C4. No acute natalie ow edema. Remote minimal fracture involving the superior endplate of C7 without retropulsion. Signal within the cervical cord is normal. Visualized posterior fossa is unremarkable. Craniocervical junction, C1 and C2 relationship, odontoid process and soft tissues are normal. C2-C3: Normal. C3-C4: Small posterior vertebral body osteophytes with very slight encroachment upon the ventral thec al sac. No significant stenosis. C4-C5: Mild osteophytic ridging with a shallow central disc or osteophyte. Effacement of the ventral the CSF with no high-grade stenosis. C5-C6: Diffuse osteophytic ridging with small disc osteophyte complexes. Effacement of ventral CSF du e to disc osteophyte disease with mild central and bilateral foraminal stenosis. C6-C7: Disc osteophyte complexes extend into the foramen bilaterally causing mild foraminal stenosis, greater on the RIGHT than the LEFT. C7-T1: Normal. Paraspinal soft tissue are normal. MR/MR cervical spin wo con* [id number] IMPRESSION: 1. Straightening with reversal normal cervical lordosis centered at C7. 2. Mild bilateral foraminal stenosis at C6-7 due to disc osteophyte disease, R IGHT foraminal stenosis greater than LEFT. 3. Mild central and bilateral foraminal stenosis at C5-6. 4. Most significant disc osteophyte complexes at the C5-6 level centrally and extending into the foramen. 5. Very slight encroachment upon the ventral thecal sac at C3-4 and C4-5.
--- NOTE | 2020-06-08 10:30 | MR_ITS ---
WS: [id number] MRI BRAIN WITH AND WITHOUT CONTRAST HISTORY: M35.00 - Sicca syndrome, unspecified COMPARISON: 09/16/2013 TECHNIQUE: Multiplanar imaging performed through the brain with MultiHance 20 ml's IV. No acute infarcts are seen. Molina-white matter differentiation is well preserved. No susceptibility artifacts or prior lacunar infarcts. There are a few scattered T2 and FLAIR signal hyperintensities, slightly greater on the LEFT with mild progression since 09/16/2013. No prior infarc t. Ventricles and extra-axial spaces are normal. Clivus and pituitary gland are normal. Visualized posterior fossa and brainstem are also normal. Postcontrast images are negative for masses or vascular malformations. Dural venous sinuses are normal. Paranasal sinuses: Well aerated with no significant disease. Mastoid air cells: Normal. Visualized parotid glands are normal. Calvarium and scalp: Normal. MR/MR head wo/w con [id number] IMPRESSION: 1. No acute infarct or mass. 2. Mild chronic microvascular ischemic changes, slightly greater involving the LEFT periventricular white matter and mild progression since 2013.
[2020-06-08] MEDS: gadobenate dimeglumine 20 mL vial IV (11:42)
== END 2020-06-08 10:20 | disposition home or self-care (01) ==
LOC: RADWPI 10:26
PROVIDERS: PCP Family Medicine; Visit Provider Specialist
DX: M54.2 Cervicalgia (principal); M35.00 Sjogren syndrome, unspecified; M25.78 Osteophyte, vertebrae; M48.02 Spinal stenosis, cervical region
CPT/HCPCS: 70553; 72141; A9577

== ENCOUNTER → 2020-06-23 08:09 | Outpatient (BNVA) | payer OTHER, SELFPAY | PROVIDERS: PCP Family Medicine; Referring Provider Specialist; Visit Provider Orthopaedic Surgery | DX: M47.892 Other spondylosis, cervical region (principal); M54.2 Cervicalgia | CPT/HCPCS: 72050 ==

== ENCOUNTER → 2020-07-01 09:38 | Outpatient (BNVA) | payer OTHER, SELFPAY | PROVIDERS: PCP Family Medicine; Referring Provider Orthopaedic Surgery; Visit Provider Anesthesiology Pain Medicine | DX: G62.9 Polyneuropathy, unspecified (principal); M54.2 Cervicalgia; M79.601 Pain in right arm; M79.604 Pain in right leg; F17.210 Nicotine dependence, cigarettes, uncomplicated | CPT/HCPCS: 99205 ==

== ENCOUNTER 2020-07-28 10:19 | Outpatient (CLI) | payer OTHER, SELFPAY ==
[2020-07-28 10:54] LABS: Basophils % 0.4 %; Hematocrit 43.9 % (37.0-47.0); Hemoglobin 14.5 g/dL (11.5-15.3); Lymphocytes # 1.5 10^3/uL (0.8-4.8); Mean Corpuscular Hemoglobin 31.5 pg (28.0-34.0); Mean Corpuscular Volume 95.4 fL (81-99); Monocytes # 0.4 10^3/uL (0.2-0.9); Monocytes % 8.1 %; Neutrophils # 2.59 10^3/uL (1.8-7.7); Neutrophils % 58.3 %; Nucleated Red Blood Cells % 0 %; Platelet Count 239 10^3/cmm (130-400); White Blood Count 4.5 10^3/uL (4.0-10.0)
[2020-07-28 11:57] LABS: Erythrocyte Sedimentation Rate 28 mm/hr (0-15)
[2020-07-28 20:19] LABS: Alanine Aminotransferase 12 U/L (0-33); Albumin Level 4.2 g/dL (3.5-5.2); Alkaline Phosphatase 60 IU/L (35-105); Anion Gap 17.5 (5-19); Aspartate Amino Transferase 20 U/L (0-32); Blood Urea Nitrogen 15 mg/dL (6-20); C Reactive Protein 0.7 mg/L (0.0-4.9); Calcium 9.2 mg/dL (8.5-10.5); Carbon Dioxide 25 mmol/L (22-29); Chloride 106 mmol/L (98-107); Globulin 2.8 g/dL (1.3-4.6); Glomerular Filtration Rate 73.7 mL/min (90-130); Glucose 91 mg/dL (65-115); Osmolality Calculated 298 mOsm/kg (285-295); Potassium 4.5 mmol/L (3.5-5.1); Sodium 144 mmol/L (136-145); Total Bilirubin 0.5 mg/dL (0.15-1.2)
== END 2020-07-28 10:20 | disposition home or self-care (01) ==
PROVIDERS: PCP Family Medicine; Visit Provider Internal Medicine
DX: M06.9 Rheumatoid arthritis, unspecified (principal); M35.00 Sjogren syndrome, unspecified; Z79.899 Other long term (current) drug therapy
CPT/HCPCS: 36415; 80053; 85025; 85651; 86140

== ENCOUNTER → 2020-08-03 14:55 | Outpatient (BNVA) | payer OTHER, SELFPAY | PROVIDERS: PCP Family Medicine; Visit Provider Internal Medicine | DX: M06.9 Rheumatoid arthritis, unspecified (principal); M35.00 Sjogren syndrome, unspecified; F17.210 Nicotine dependence, cigarettes, uncomplicated | CPT/HCPCS: 99214 ==

== ENCOUNTER → 2020-10-01 11:03 | Outpatient (BNVA) | payer OTHER, SELFPAY | PROVIDERS: PCP Family Medicine; Visit Provider Internal Medicine | DX: M06.9 Rheumatoid arthritis, unspecified (principal); M35.00 Sjogren syndrome, unspecified; Z79.899 Other long term (current) drug therapy | CPT/HCPCS: 36415; 80053; 85025; 86140 ==

== ENCOUNTER → 2020-10-15 10:54 | Outpatient (BNVA) | payer OTHER, SELFPAY | PROVIDERS: PCP Family Medicine; Visit Provider Internal Medicine | DX: R76.8 Other specified abnormal immunological findings in serum (principal); G96.00 Cerebrospinal fluid leak, unspecified; M35.00 Sjogren syndrome, unspecified; M06.9 Rheumatoid arthritis, unspecified; Z79.899 Other long term (current) drug therapy | CPT/HCPCS: 36415; 80053; 85025; 85651; 86140 ==

== ENCOUNTER → 2020-10-19 14:53 | Outpatient (BNVA) | payer OTHER, SELFPAY | PROVIDERS: PCP Family Medicine; Visit Provider Internal Medicine | DX: M06.9 Rheumatoid arthritis, unspecified (principal); M35.00 Sjogren syndrome, unspecified; R21 Rash and other nonspecific skin eruption; R11.0 Nausea; F17.210 Nicotine dependence, cigarettes, uncomplicated | CPT/HCPCS: 99213; 99214 ==

== ENCOUNTER → 2020-12-23 16:02 | Outpatient (BNVA) | payer OTHER, SELFPAY | PROVIDERS: PCP Family Medicine; Visit Provider Internal Medicine | DX: G96.00 Cerebrospinal fluid leak, unspecified (principal); M35.00 Sjogren syndrome, unspecified; M06.9 Rheumatoid arthritis, unspecified; Z79.899 Other long term (current) drug therapy | CPT/HCPCS: 36415; 80053; 84550; 85025; 85651; 86140 ==

== ENCOUNTER → 2021-02-09 08:44 | Outpatient (BNVA) | payer OTHER, SELFPAY | PROVIDERS: PCP Family Medicine; Visit Provider Internal Medicine | DX: Z79.899 Other long term (current) drug therapy (principal); G62.9 Polyneuropathy, unspecified; G96.00 Cerebrospinal fluid leak, unspecified; M06.9 Rheumatoid arthritis, unspecified; M35.00 Sjogren syndrome, unspecified; M35.9 Systemic involvement of connective tissue, unspecified | CPT/HCPCS: 36415; 80053; 82607; 83735; 84100; 84207; 84443; 85025; 85651; 86140 ==

== ENCOUNTER → 2021-02-17 15:02 | Outpatient (BNVA) | payer OTHER, SELFPAY | PROVIDERS: PCP Family Medicine; Visit Provider Internal Medicine | DX: M06.9 Rheumatoid arthritis, unspecified (principal); M48.00 Spinal stenosis, site unspecified; R29.6 Repeated falls; R76.8 Other specified abnormal immunological findings in serum; R79.89 Other specified abnormal findings of blood chemistry; F17.210 Nicotine dependence, cigarettes, uncomplicated | CPT/HCPCS: 99214 ==

== ENCOUNTER 2021-05-05 10:15 | Outpatient (CLI) | payer OTHER, SELFPAY ==
[2021-05-05 10:46] LABS: Basophils % 0.5 %; Hematocrit 41.9 % (37.0-47.0); Lymphocytes # 1.5 10^3/uL (0.8-4.8); Lymphocytes % 23.4 %; Mean Corpuscular HGB Conc 33.4 g/dL (30.0-36.0); Mean Corpuscular Hemoglobin 32.6 pg (28.0-34.0); Mean Corpuscular Volume 97.7 fl (81-99); Mean Platelet Volume 10.2 fL (7.4-10.4); Monocytes # 0.4 10^3/uL (0.2-0.9); Monocytes % 5.6 %; Neutrophils # 4.61 10^3/uL (1.8-7.7); Neutrophils % 70.2 %; Nucleated Red Blood Cells % 0 %; Platelet Count 232 10^3/cmm (130-400); Red Blood Count 4.29 10^6/uL (4.1-5.3); Red Cell Distribution Width 13.6 % (12.1-15.1); White Blood Count 6.6 10^3/uL (4.0-10.0)
[2021-05-05 10:54] LABS: Erythrocyte Sedimentation Rate 3 mm/hr (0-15)
[2021-05-05 11:03] LABS: Alanine Aminotransferase 14 U/L (0-33); Albumin Level 4.2 g/dL (3.5-5.2); Alkaline Phosphatase 66 IU/L (35-105); Anion Gap 15.6 (5-19); Aspartate Amino Transferase 16 U/L (0-32); Blood Urea Nitrogen 16 mg/dL (6-20); Calcium 9.9 mg/dL (8.5-10.5); Carbon Dioxide 25 mmol/L (22-29); Chloride 107 mmol/L (98-107); Globulin 3.1 g/dL (1.3-4.6); Glomerular Filtration Rate 85.6 mL/min (90-130); Glucose 106 mg/dL (65-115); Iron 65 ug/dL (37-145); Osmolality Calculated 298 mOsm/kg (285-295); Potassium 4.6 mmol/L (3.5-5.1); Sodium 143 mmol/L (136-145); Total Bilirubin 0.5 mg/dL (0.15-1.2); Total Protein 7.3 g/dL (6.6-8.7); Uric Acid 5.4 mg/dL (2.4-5.7)
[2021-05-05 11:19] LABS: 25 Hydroxy Vitamin D 86 ng/mL (30-100)
[2021-05-09 20:08] LABS: Vitamin B1(Thiamin) Plas/Ser 16 nmol/L (8-30)
== END 2021-05-05 10:16 | disposition home or self-care (01) ==
PROVIDERS: PCP Family Medicine; Visit Provider Internal Medicine
DX: G37.9 Demyelinating disease of central nervous system, unspecified (principal); M06.9 Rheumatoid arthritis, unspecified; M35.00 Sjogren syndrome, unspecified; M35.9 Systemic involvement of connective tissue, unspecified; R11.0 Nausea; W19.XXXA Unspecified fall, initial encounter; R42 Dizziness and giddiness
CPT/HCPCS: 36415; 80053; 82306; 83540; 84425; 84550; 85025; 85651; 86140

== ENCOUNTER 2021-06-28 12:02 | Outpatient (CLI) | payer OTHER, SELFPAY ==
[2021-06-28 12:47] LABS: Basophils % 0.3 %; Eosinophils # 0.2 10^3/uL (0.0-0.8); Eosinophils % 2.6 %; Hematocrit 42.4 % (37.0-47.0); Hemoglobin 14.4 g/dL (11.5-15.3); Lymphocytes # 1.9 10^3/uL (0.8-4.8); Lymphocytes % 33.4 %; Mean Corpuscular Hemoglobin 33.1 pg (28.0-34.0); Mean Corpuscular Volume 97.5 fl (81-99); Mean Platelet Volume 10.3 fL (7.4-10.4); Monocytes # 0.3 10^3/uL (0.2-0.9); Monocytes % 4.3 %; Neutrophils # 3.42 10^3/uL (1.8-7.7); Neutrophils % 59.2 %; Nucleated Red Blood Cells % 0 %; Platelet Count 277 10^3/cmm (130-400); Red Blood Count 4.35 10^6/uL (4.1-5.3); Red Cell Distribution Width 13.1 % (12.1-15.1); White Blood Count 5.8 10^3/uL (4.0-10.0)
[2021-06-28 13:20] LABS: Alanine Aminotransferase 15 U/L (0-33); Albumin Level 4.4 g/dL (3.5-5.2); Alkaline Phosphatase 75 IU/L (35-105); Aspartate Amino Transferase 19 U/L (0-32); Blood Urea Nitrogen 12 mg/dL (6-20); Calcium 9.7 mg/dL (8.5-10.5); Carbon Dioxide 25 mmol/L (22-29); Chloride 102 mmol/L (98-107); Creatine Phosphokinase 53 U/L (26-192); Globulin 2.8 g/dL (1.3-4.6); Glomerular Filtration Rate 73.4 mL/min (90-130); Glucose 102 mg/dL (65-115); Osmolality Calculated 286 mOsm/kg (285-295); Sodium 138 mmol/L (136-145); Total Bilirubin 0.3 mg/dL (0.15-1.2); Total Protein 7.2 g/dL (6.6-8.7); Uric Acid 5.6 mg/dL (2.4-5.7)
[2021-06-28 13:21] LABS: Erythrocyte Sedimentation Rate 16 mm/hr (0-15); Slide Review Slide Review Perform
[2021-06-28 13:29] LABS: Anion Gap 15.3 (5-19); Potassium 4.3 mmol/L (3.5-5.1)
[2021-06-29 12:51] LABS: COMPLEMENT COMPONENT C3C 133 mg/dL (83-193); COMPLEMENT COMPONENT C4C 23 mg/dL (15-57)
[2021-06-29 13:56] LABS: THYROID PEROXIDASE ANTIBODIES <1 IU/mL (<9)
[2021-06-29 14:26] LABS: CENTROMERE B ANTIBODY <1.0 NEG AI (<1.0 NEG); JO-1 ANTIBODY <1.0 NEG AI (<1.0 NEG); RNP ANTIBODY <1.0 NEG AI (<1.0 NEG); SCL-70 ANTIBODY <1.0 NEG AI (<1.0 NEG); SJOGREN'S ANTIBODY (SS-A) >8.0 POS AI (<1.0 NEG); SM ANTIBODY <1.0 NEG AI (<1.0 NEG); SS-B 1.1 POS AI (<1.0 NEG)
[2021-06-30 12:22] LABS: ANA SCREEN, IFA POSITIVE (NEGATIVE)
[2021-06-30 15:43] LABS: DNA AB (DS) CRITHIDIA,IFA NEGATIVE (NEGATIVE)
[2021-06-30 15:58] LABS: COMPLEMENT, TOTAL (CH50) >60 U/mL (31-60)
[2021-07-01 13:08] LABS: Anti-Nuclear AB Pattern #2 Nuclear, Speckled
== END 2021-06-28 12:03 | disposition home or self-care (01) ==
PROVIDERS: PCP Family Medicine; Visit Provider Internal Medicine
DX: G62.9 Polyneuropathy, unspecified (principal); M06.9 Rheumatoid arthritis, unspecified; M35.00 Sjogren syndrome, unspecified; M35.9 Systemic involvement of connective tissue, unspecified; Z79.899 Other long term (current) drug therapy
CPT/HCPCS: 80053; 82550; 84182; 84550; 85025; 85651; 86140; 86160; 86162; 86235; 86255; 86376

== ENCOUNTER → 2021-07-12 10:47 | Outpatient (BNVA) | payer OTHER, SELFPAY | PROVIDERS: PCP Family Medicine; Visit Provider Internal Medicine | DX: M48.00 Spinal stenosis, site unspecified (principal); R79.89 Other specified abnormal findings of blood chemistry; G62.9 Polyneuropathy, unspecified; M06.9 Rheumatoid arthritis, unspecified; G25.81 Restless legs syndrome; R21 Rash and other nonspecific skin eruption; M35.00 Sjogren syndrome, unspecified; L29.9 Pruritus, unspecified; R53.1 Weakness | CPT/HCPCS: 36415; 82550; 82607; 82728; 83516; 83540; 84100; 84550 ==

== ENCOUNTER 2021-07-28 09:59 | Outpatient (CLI) | payer OTHER, SELFPAY ==
[2021-08-02 19:41] LABS: Acetylcholine Receptor Binding <0.30 nmol/L
[2021-08-02 22:17] LABS: Acetylcholine Receptor Block <15 (<15)
[2021-08-12 19:23] LABS: Acetylcholine Recept Modulatin 8
== END 2021-07-28 10:00 | disposition home or self-care (01) ==
LOC: LAB 10:00
PROVIDERS: PCP Family Medicine; Visit Provider Specialist
DX: G70.00 Myasthenia gravis without (acute) exacerbation (principal)
CPT/HCPCS: 36415; 83516; 83519

== ENCOUNTER 2021-08-10 13:23 | Outpatient (CLI) | payer OTHER, SELFPAY ==
--- NOTE | 2021-08-10 13:45 | MR_ITS ---
WS: [id number] MRI LUMBAR SPINE NONCONTRAST TECHNIQUE: Sagittal T1, T2 and STIR imaging. Axial T1 and T2 imaging. CLINICAL INFORMATION: M48.00 - Spinal stenosis, site unspecified COMPARISON: None. FINDINGS: Mild lumbar curve. No acute compression. No high-grade central canal stenosis. Slight anterolisthesis L3 on L4 and L5 on S1. Annular fissure L4-L5. L1-L2: Normal. L2-L3: No significant disc bulging. Mild facet arthropathy. Spinal canal and foramen are patent. L3-L4: Grade 1 anterolisthesis. Slight narrowing of the subarticular recess bilaterally. Moderate fac et arthropathy. Mild central canal stenosis. Small LEFT foraminal protrusion with mild LEFT foraminal narrowing. L4-L5: Mild annular bulging. Tiny central protrusion with tiny annular fissure. Mild LEFT and no sign ificant RIGHT foraminal narrowing. Moderate facet arthropathy. L5-S1: Mild disc bulging with osteophytic ridging. Slight anterolisthesis L5 on S1. Slight contact of the S1 nerve roots RIGHT greater than LEFT. Foramen are patent. Visualized pelvic bony structures: Normal. Paravertebral soft tissues: Normal. MR/MR lumbar spine wo con* [id number] IMPRESSION: 1. Mild lumbar curve. No acute compression. No high-grade central canal stenos is. 2. Grade 1 anterolisthesis L3 on L4 and L5 on S1. 3. Shallow central protrusion L4-L5 with a small annular fissure. Slight narro wing of the subarticular recess bilaterally with impingement on the traversing L5 nerve roots. 4. Mild central canal stenosis L3-L4. Narrowing of the LEFT greater than RIGHT subarticular recess. Mild LEFT foraminal narrowing. 5. Mild LEFT L4-L5 foraminal narrowing. 6. Mild disc osteophyte complex L5-S1 with slight impingement on the RIGHT S1 nerve root. 7. Moderate facet arthropathy L3-L5.
== END 2021-08-10 13:24 | disposition home or self-care (01) ==
LOC: RAD 13:24
PROVIDERS: PCP Family Medicine; Visit Provider Internal Medicine
DX: G62.9 Polyneuropathy, unspecified (principal); M06.9 Rheumatoid arthritis, unspecified; R79.89 Other specified abnormal findings of blood chemistry; M51.26 Other intervertebral disc displacement, lumbar region; M48.061 Spinal stenosis, lumbar region without neurogenic claudication; M47.816 Spondylosis without myelopathy or radiculopathy, lumbar region
CPT/HCPCS: 72148

== ENCOUNTER → 2021-09-13 15:00 | Outpatient (BNVA) | payer OTHER, SELFPAY | PROVIDERS: PCP Family Medicine; Visit Provider Internal Medicine | DX: M48.00 Spinal stenosis, site unspecified (principal); R53.1 Weakness; W57.XXXA Bitten or stung by nonvenomous insect and other nonvenomous arthropods, initial encounter; M06.9 Rheumatoid arthritis, unspecified; R29.898 Other symptoms and signs involving the musculoskeletal system | CPT/HCPCS: 36415; 80053; 81003; 85651; 86140; 86618; 86666; 86757 ==

== ENCOUNTER 2021-11-29 11:30 | Outpatient (CLI) | payer MEDICARE, OTHER, SELFPAY ==
[2021-11-29 12:01] LABS: Basophils % 0.4 %; Eosinophils # 0.2 10^3/uL (0.0-0.8); Eosinophils % 3.2 %; Hematocrit 41.9 % (37.0-47.0); Hemoglobin 14.1 g/dL (11.5-15.3); Lymphocytes # 1.6 10^3/uL (0.8-4.8); Lymphocytes % 27.5 %; Mean Corpuscular HGB Conc 33.7 g/dL (30.0-36.0); Mean Corpuscular Hemoglobin 31.8 pg (28.0-34.0); Mean Corpuscular Volume 94.6 fl (81-99); Mean Platelet Volume 10.1 fL (7.4-10.4); Monocytes # 0.4 10^3/uL (0.2-0.9); Monocytes % 6.9 %; Neutrophils # 3.49 10^3/uL (1.8-7.7); Neutrophils % 61.8 %; Nucleated Red Blood Cells % 0 %; Platelet Count 254 10^3/cmm (130-400); Red Blood Count 4.43 10^6/uL (4.1-5.3); White Blood Count 5.6 10^3/uL (4.0-10.0)
[2021-11-29 12:08] LABS: Erythrocyte Sedimentation Rate 8 mm/hr (0-15)
[2021-11-29 12:44] LABS: Alanine Aminotransferase 20 U/L (0-33); Albumin Level 4.1 g/dL (3.5-5.2); Alkaline Phosphatase 65 U/L (35-105); Anion Gap 14.4 (5-19); Aspartate Amino Transferase 23 U/L (0-32); Blood Urea Nitrogen 11 mg/dL (8-23); Calcium 9.7 mg/dL (8.5-10.5); Carbon Dioxide 27 mmol/L (22-29); Chloride 105 mmol/L (98-107); Globulin 3.2 g/dL (1.3-4.6); Glomerular Filtration Rate 73.2 mL/min (90-130); Glucose 97 mg/dL (65-115); Osmolality Calculated 293 mOsm/kg (285-295); Potassium 4.4 mmol/L (3.5-5.1); Sodium 142 mmol/L (136-145); Total Bilirubin 0.5 mg/dL (0.15-1.2); Total Protein 7.3 g/dL (6.6-8.7)
== END 2021-11-29 11:31 | disposition home or self-care (01) ==
LOC: LAB 11:32
PROVIDERS: PCP Family Medicine; Visit Provider Internal Medicine
DX: M06.9 Rheumatoid arthritis, unspecified (principal); M35.00 Sjogren syndrome, unspecified; R21 Rash and other nonspecific skin eruption
CPT/HCPCS: 36415; 80053; 85025; 85651; 86140

== ENCOUNTER 2022-04-01 07:19 | Outpatient (CLI) | payer MEDICARE, OTHER, SELFPAY ==
--- NOTE | 2022-04-01 | MR_ITS ---
WS: [id number] MRI THORACIC SPINE without HISTORY: STENOSIS COMPARISON: None available. TECHNIQUE: Multiplanar sequences are performed in sagittal and axial planes. Mild RIGHT curvature thoracic spine. Posterior alignment is otherwise normal. No signal abnormality w ithin the cord. There is no cord atrophy or enlargement. No syrinx. T1-2: Normal. T2-3: Normal. T3-4: Normal. T4-5: Normal. T5-6: Normal. T6-7: Normal. T7-8: Normal. T8-9: Normal. T9-10: Normal. T10-11: Mild facet joint arthritis. Small amount of fluid in the RIGHT facet joint. No significant s tenosis. T11-12: Normal. Paravertebral soft tissues are negative. MR/MR thoracic spin wo con* [id number] IMPRESSION: 1. No significant central or foraminal stenosis within the thoracic spine. 2. No thoracic disc protrusions.
--- NOTE | 2022-04-01 | MR_ITS ---
WS: [id number] MRI CERVICAL SPINE NONCONTRAST HISTORY: Stenosis, LEFT upper extremity atrophy. COMPARISON: 06/08/2020 Technique: Multiplanar, multisequence noncontrast imaging of the cervical spine. Straightening and reversal the normal cervical lordosis. Reversal centered at C4. Mild elongation of the cervical cord due to reversal. Mild disc space narrowing and desiccation. C6 retrolisthesis by 3 mm. Signal within the cervical cord is normal. Visualized posterior fossa is unremarkable. Craniocervical junction, C1 and C2 relationship, odontoid process and soft tissues are normal. C2-C3: Normal. C3-C4: Small vertebral body osteophytes. No significant stenosis or change. Minimal encroachment upon the ventral thecal sac. C4-C5: Mild disc bulging. No significant stenosis. No disc protrusion identified today. C5-C6: Diffuse osteophytic ridging and disc bulging. Mild bilateral facet joint arthritis. Mild centr al and bilateral foraminal stenosis. Not significantly progressed. C6-C7: Mild annular disc bulging with disc osteophyte complexes bilaterally. Slightly larger disc ost eophyte complex in the proximal LEFT foramen. Mild bilateral foraminal narrowing, RIGHT greater than LEFT. Similar to the prior study. C7-T1: Normal. Paraspinal soft tissue are normal. MR/MR cervical spin wo con* [id number] IMPRESSION: 1. Mild progression of spondylitic changes in the cervical spine since 06/09/19 21. 2. No high-grade central or foraminal stenosis. 3. Mild central and bilateral foraminal stenosis at C5-6 , not significantly c hanged. 4. Mild bilateral foraminal stenosis at C6-7 due to disc osteophyte complex, g reater on the RIGHT. 5. Reversal of the normal cervical lordosis.
== END 2022-04-01 07:20 | disposition home or self-care (01) ==
LOC: RAD 07:19
PROVIDERS: PCP Family Medicine; Visit Provider Physical Medicine & Rehabilitation
DX: M48.02 Spinal stenosis, cervical region (principal)
CPT/HCPCS: 72141; 72146

== ENCOUNTER 2022-04-07 09:40 | Outpatient (CLI) | payer MEDICARE, OTHER, SELFPAY ==
[2022-04-07 10:12] LABS: Basophils % 0.2 %; Hematocrit 43.7 % (37.0-47.0); Hemoglobin 14.6 g/dL (11.5-15.3); Lymphocytes # 1.5 10^3/uL (0.8-4.8); Lymphocytes % 31.7 %; Mean Corpuscular HGB Conc 33.4 g/dL (30.0-36.0); Mean Corpuscular Hemoglobin 31.8 pg (28.0-34.0); Mean Corpuscular Volume 95.2 fl (81-99); Mean Platelet Volume 10.1 fL (7.4-10.4); Monocytes # 0.3 10^3/uL (0.2-0.9); Monocytes % 7.3 %; Neutrophils % 60.6 %; Nucleated Red Blood Cells % 0 %; Platelet Count 236 10^3/cmm (130-400); Red Blood Count 4.59 10^6/uL (4.1-5.3); Red Cell Distribution Width 12.7 % (12.1-15.1); White Blood Count 4.6 10^3/uL (4.0-10.0)
[2022-04-07 10:17] LABS: Erythrocyte Sedimentation Rate 6 mm/hr (0-15)
[2022-04-07 10:32] LABS: Alanine Aminotransferase 11 U/L (0-33); Albumin Level 4.2 g/dL (3.5-5.2); Alkaline Phosphatase 70 U/L (35-105); Anion Gap 13.4 (5-19); Aspartate Amino Transferase 17 U/L (0-32); Blood Urea Nitrogen 16 mg/dL (8-23); Calcium 10.2 mg/dL (8.5-10.5); Carbon Dioxide 28 mmol/L (22-29); Chloride 104 mmol/L (98-107); Globulin 3.3 g/dL (1.3-4.6); Glomerular Filtration Rate 73.2 mL/min (90-130); Glucose 112 mg/dL (65-115); Osmolality Calculated 294 mOsm/kg (285-295); Potassium 4.4 mmol/L (3.5-5.1); Sodium 141 mmol/L (136-145); Total Bilirubin 0.4 mg/dL (0.15-1.2); Total Protein 7.5 g/dL (6.6-8.7)
== END 2022-04-07 09:41 | disposition home or self-care (01) ==
LOC: LAB 09:48
PROVIDERS: PCP Family Medicine; Visit Provider Internal Medicine
DX: M06.9 Rheumatoid arthritis, unspecified (principal); R29.898 Other symptoms and signs involving the musculoskeletal system; W57.XXXA Bitten or stung by nonvenomous insect and other nonvenomous arthropods, initial encounter
CPT/HCPCS: 36415; 80053; 85025; 85651; 86140

== ENCOUNTER → 2022-04-11 13:59 | Outpatient (BNVA) | payer MEDICARE, OTHER, SELFPAY | PROVIDERS: PCP Family Medicine; Visit Provider Internal Medicine | DX: M06.9 Rheumatoid arthritis, unspecified (principal); R29.898 Other symptoms and signs involving the musculoskeletal system; W57.XXXA Bitten or stung by nonvenomous insect and other nonvenomous arthropods, initial encounter | CPT/HCPCS: 99214 ==

== ENCOUNTER 2022-06-13 14:45 | Outpatient (CLI) | payer MEDICARE, OTHER, SELFPAY ==
[2022-06-13 16:10] LABS: Basophils % 0.4 %; Hematocrit 39.5 % (37.0-47.0); Hemoglobin 13.6 g/dL (11.5-15.3); Lymphocytes # 1.5 10^3/uL (0.8-4.8); Mean Corpuscular HGB Conc 34.4 g/dL (30.0-36.0); Mean Corpuscular Hemoglobin 31.9 pg (28.0-34.0); Mean Corpuscular Volume 92.5 fl (81-99); Mean Platelet Volume 10.1 fL (7.4-10.4); Monocytes # 0.4 10^3/uL (0.2-0.9); Monocytes % 8.3 %; Neutrophils % 58.3 %; Nucleated Red Blood Cells % 0 %; Platelet Count 220 10^3/cmm (130-400); Red Blood Count 4.27 10^6/uL (4.1-5.3); Red Cell Distribution Width 12.8 % (12.1-15.1); White Blood Count 4.5 10^3/uL (4.0-10.0)
[2022-06-13 16:18] LABS: Erythrocyte Sedimentation Rate 11 mm/hr (0-15)
[2022-06-13 16:55] LABS: Alanine Aminotransferase 37 U/L (0-33); Albumin Level 3.9 g/dL (3.5-5.2); Alkaline Phosphatase 61 U/L (35-105); Aspartate Amino Transferase 47 U/L (0-32); Blood Urea Nitrogen 12 mg/dL (8-23); Calcium 9.3 mg/dL (8.5-10.5); Carbon Dioxide 25 mmol/L (22-29); Chloride 108 mmol/L (98-107); Globulin 3.1 g/dL (1.3-4.6); Glomerular Filtration Rate 85.4 mL/min (90-130); Glucose 89 mg/dL (65-115); Osmolality Calculated 297 mOsm/kg (285-295); Sodium 144 mmol/L (136-145); Total Bilirubin 0.4 mg/dL (0.15-1.2)
[2022-06-13 17:03] LABS: Anion Gap 15.1 (5-19); Potassium 4.1 mmol/L (3.5-5.1)
== END 2022-06-13 14:46 | disposition home or self-care (01) ==
LOC: LAB 14:53
PROVIDERS: PCP Family Medicine; Visit Provider Internal Medicine
DX: M06.9 Rheumatoid arthritis, unspecified (principal)
CPT/HCPCS: 36415; 80053; 85025; 85651; 86140

== ENCOUNTER → 2022-06-20 11:37 | Outpatient (BNVA) | payer MEDICARE, OTHER, SELFPAY | PROVIDERS: PCP Family Medicine; Visit Provider Internal Medicine | DX: M06.9 Rheumatoid arthritis, unspecified (principal); M32.9 Systemic lupus erythematosus, unspecified; M35.9 Systemic involvement of connective tissue, unspecified; R21 Rash and other nonspecific skin eruption; R53.1 Weakness; R79.89 Other specified abnormal findings of blood chemistry | CPT/HCPCS: 36415; 80053; 82550; 84100; 84439; 84443; 84480; 85025; 85651; 86140; 99214 ==

== ENCOUNTER 2022-07-11 12:43 | Outpatient (CLI) | payer MEDICARE, OTHER, SELFPAY ==
--- NOTE | 2022-07-11 13:13 | MR_ITS ---
WS: [id number] MRI LEFT FOREARM with and without CONTRAST. COMPARISON: None Multiplanar, multisequence imaging is performed with and without contrast. MultiHance 15 mL IV. No marrow edema or fracture. There is no significant amount of edema or increased T2 signal within th e muscles of the forearm. There may be very slight muscle atrophy but no significant loss of muscle. No joint effusion. There are no areas of abnormal enhancement. No joint effusion at the elbow. MR/MR forearm LT wo/w con [id number] IMPRESSION: Negative MRI LEFT forearm with and without contrast
--- NOTE | 2022-07-11 13:45 | MR_ITS ---
WS: [email or web address] MRI LEFT HUMERUS with and without CONTRAST. COMPARISON: None Multiplanar, multisequence imaging is performed with and without contrast. MultiHance 15 mL's IV. No marrow edema or fracture. There is no fatty replacement of the muscles surrounding the shoulder or through the humerus. On several of the sequences there is a linear soft tissue abnormality in the LEFT chest. On a prior m ammogram and biopsy 6 month follow-up was recommended as noted on 01/21/2020. There is no evidence of this was performed at [facility]. No interval mammogram. MR/MR humerus LT wo/w con [id number] IMPRESSION: 1. No marrow edema. 2. No fatty replacement or edema within the muscle surrounding the humerus. 3. Signal abnormality in the LEFT breast. Patient was recommended for 6 month diagnostic mammogram on 01/21/2020. It does [place] appear [place] [facility] [place]mmend diagnostic mammogram and possible ultrasound follow-up.
[2022-07-11] MEDS: gadobenate dimeglumine 20 mL vial IV (15:01)
== END 2022-07-11 12:44 | disposition home or self-care (01) ==
LOC: RAD 12:45
PROVIDERS: PCP Family Medicine; Visit Provider Internal Medicine
DX: M48.00 Spinal stenosis, site unspecified (principal)
CPT/HCPCS: 73220; A9577

== ENCOUNTER 2022-08-29 10:47 | Outpatient (CLI) | payer MEDICARE, OTHER, SELFPAY ==
[2022-08-29 12:31] LABS: Basophils % 0.2 %; Hematocrit 42.3 % (37.0-47.0); Hemoglobin 14.2 g/dL (11.5-15.3); Lymphocytes # 1.4 10^3/uL (0.8-4.8); Lymphocytes % 35.3 %; Mean Corpuscular HGB Conc 33.6 g/dL (30.0-36.0); Mean Corpuscular Hemoglobin 31.7 pg (28.0-34.0); Mean Corpuscular Volume 94.4 fl (81-99); Mean Platelet Volume 10.9 fL (7.4-10.4); Monocytes # 0.3 10^3/uL (0.2-0.9); Monocytes % 8.1 %; Neutrophils # 2.27 10^3/uL (1.8-7.7); Neutrophils % 56.2 %; Nucleated Red Blood Cells % 0 %; Platelet Count 211 10^3/cmm (130-400); Red Blood Count 4.48 10^6/uL (4.1-5.3); Red Cell Distribution Width 13.2 % (12.1-15.1); White Blood Count 4.1 10^3/uL (4.0-10.0)
[2022-08-29 12:51] LABS: Erythrocyte Sedimentation Rate 7 mm/hr (0-15)
[2022-08-29 12:56] LABS: Alanine Aminotransferase 11 U/L (0-33); Albumin Level 4.2 g/dL (3.5-5.2); Alkaline Phosphatase 65 U/L (35-105); Anion Gap 12.4 (5-19); Aspartate Amino Transferase 17 U/L (0-32); Blood Urea Nitrogen 10 mg/dL (8-23); Carbon Dioxide 27 mmol/L (22-29); Chloride 106 mmol/L (98-107); Creatine Phosphokinase 51 U/L (26-192); Globulin 2.7 g/dL (1.3-4.6); Glomerular Filtration Rate 85.4 mL/min (90-130); Glucose 89 mg/dL (65-115); Osmolality Calculated 291 mOsm/kg (285-295); Potassium 4.4 mmol/L (3.5-5.1); Sodium 141 mmol/L (136-145); Total Bilirubin 0.3 mg/dL (0.15-1.2); Total Protein 6.9 g/dL (6.6-8.7)
== END 2022-08-29 10:48 | disposition home or self-care (01) ==
PROVIDERS: PCP Family Medicine; Visit Provider Internal Medicine
DX: R53.1 Weakness (principal)
CPT/HCPCS: 36415; 80053; 82550; 85025; 85651; 86140

== ENCOUNTER → 2022-08-31 10:09 | Outpatient (BNVA) | payer MEDICARE, OTHER, SELFPAY | PROVIDERS: PCP Family Medicine; Visit Provider Internal Medicine | DX: M06.9 Rheumatoid arthritis, unspecified (principal); R53.1 Weakness; G72.9 Myopathy, unspecified; R79.89 Other specified abnormal findings of blood chemistry; R29.898 Other symptoms and signs involving the musculoskeletal system | CPT/HCPCS: 99214 ==

== ENCOUNTER 2022-10-10 11:46 | Outpatient (CLI) | payer MEDICARE, OTHER, SELFPAY ==
--- NOTE | 2022-10-10 12:00 | MM_ITS ---
WS: [id number] BILATERAL DIAGNOSTIC DIGITAL TOMOSYNTHESIS MAMMOGRAM WITH CAD HISTORY: left lump felt/swelling/red/hot/increased sz, patient is denying symptoms today. COMPARISON: 12/24/2019, 11/28/2017 and MRI 07/11/2022. Bilateral CC, ML and MLO views with tomosynthesis and synthetic mammography submitted. Computer aided detection analyzed. Breast composition: The breasts are heterogeneously dense, which may obscure small masses. No suspici ous masses, microcalcifications or architectural distortion. Scattered calcifications. MM/[place] [id number] IMPRESSION: BI-RADS: 2-Benign FOLLOW UP: 1 Year Follow-up
== END 2022-10-10 11:47 | disposition home or self-care (01) ==
PROVIDERS: PCP Family Medicine; Visit Provider Family Medicine Adult Medicine
DX: N63.20 Unspecified lump in the left breast, unspecified quadrant (principal); N64.9 Disorder of breast, unspecified; R23.8 Other skin changes; N64.59 Other signs and symptoms in breast
CPT/HCPCS: 77062; G0279

== ENCOUNTER → 2022-11-01 12:59 | Outpatient (BNVA) | payer MEDICARE, OTHER, SELFPAY | PROVIDERS: PCP Family Medicine; Visit Provider Internal Medicine | DX: R53.1 Weakness; M05.9 Rheumatoid arthritis with rheumatoid factor, unspecified; R29.898 Other symptoms and signs involving the musculoskeletal system; G72.9 Myopathy, unspecified; M32.9 Systemic lupus erythematosus, unspecified | CPT/HCPCS: 36415; 80053; 81003; 81291; 82550; 83735; 84100; 84443; 85025; 85651; 86140; 96372; 99214; J1030 ==

== ENCOUNTER 2022-11-29 12:15 | Outpatient (CLI) | payer MEDICARE, OTHER, SELFPAY ==
[2022-11-29 13:50] LABS: Complement C3 113 mg/dL (90-180)
[2022-11-30 15:34] LABS: Beef (27) IgE <0.10 kU/L; Beef Class 0; Lamb (F88) IgE <0.10 kU/L; Lamb Class 0; Pork (F26) IgE <0.10 kU/L; Pork Class 0
[2022-12-01 18:10] LABS: Galactose-alpha-1,3 IgE <0.10 kU/L (<0.10)
[2022-12-07 21:54] LABS: 14.3.3 ETA Protein <0.2 ng/mL (<0.2)
== END 2022-11-29 12:16 | disposition home or self-care (01) ==
PROVIDERS: PCP Family Medicine; Visit Provider Internal Medicine
DX: R53.1 Weakness (principal); T14.8XXA Other injury of unspecified body region, initial encounter; G25.81 Restless legs syndrome; G37.9 Demyelinating disease of central nervous system, unspecified; R79.89 Other specified abnormal findings of blood chemistry; G72.9 Myopathy, unspecified; W57.XXXA Bitten or stung by nonvenomous insect and other nonvenomous arthropods, initial encounter
CPT/HCPCS: 36415; 83520; 86003; 86008; 86160

== ENCOUNTER → 2022-12-21 14:21 | Outpatient (BNVA) | payer MEDICARE, OTHER, SELFPAY | PROVIDERS: PCP Family Medicine; Visit Provider Internal Medicine | DX: M06.9 Rheumatoid arthritis, unspecified (principal); R29.898 Other symptoms and signs involving the musculoskeletal system; R53.1 Weakness | CPT/HCPCS: 99214 ==

== ENCOUNTER 2023-02-14 09:42 | Outpatient (CLI) | payer MEDICARE, OTHER, SELFPAY ==
[2023-02-14 10:22] LABS: Basophils % 0.4 %; Hematocrit 48.3 % (36-47); Lymphocytes # 1.8 10^3/uL (0.8-4.8); Lymphocytes % 18.8 %; Mean Corpuscular HGB Conc 32.9 g/dL (30-55); Mean Corpuscular Hemoglobin 31.6 pg (27-33); Mean Platelet Volume 9.3 fL (7.4-10.4); Monocytes # 0.6 10^3/uL (0.2-0.9); Monocytes % 5.6 %; Neutrophils # 7.32 10^3/uL (1.8-7.7); Neutrophils % 74.9 %; Nucleated Red Blood Cells % 0 %; Platelet Count 318 10^3/cmm (157-399); Red Blood Count 5.03 10^6/uL (3.85-5.65); Red Cell Distribution Width 12.9 % (12.1-15.1); White Blood Count 9.78 10^3/uL (3.29-11.43)
[2023-02-14 10:35] LABS: Erythrocyte Sedimentation Rate 9 mm/hr (0-15)
[2023-02-14 10:52] LABS: Alanine Aminotransferase 16 U/L (0-33); Albumin Level 4.5 g/dL (3.5-5.2); Alkaline Phosphatase 95 U/L (35-105); Aspartate Amino Transferase 23 U/L (0-32); Chloride 101 mmol/L (98-107); Creatine Phosphokinase 77 U/L (26-192); Glucose 99 mg/dL (65-115); Phosphorus 3.7 mg/dL (2.5-4.5); Potassium 5.2 mmol/L (3.5-5.1); Sodium 142 mmol/L (136-145)
[2023-02-14 10:52] LABS: Add Urine Microscopic? YES; Bacteria Urine TRACE /hpf; Bilirubin Urine Neg (Negative); Blood Urine Neg (Negative); Glucose Urine UA Norm (Normal); Ketones Urine Negative (Negative); Leukocyte Esterase Urine 1+ (Negative); Nitrate Urine Negative (Negative); Protein Urine Trace (Negative); RBC Urine 0-4 /hpf (0-2); Specific Gravity, Urine 1.015 (1.005-1.030); Transitional Epi Cells Urine 0-4 /hpf; Urine Appearance Hazy (CLEAR); Urine Color Dark Yellow (Yellow); Urobilinogen Urine Norm (Negative); pH Urine 6 (5-7)
[2023-02-14 10:53] LABS: Add Urine Culture? No
[2023-02-14 10:53] LABS: Calcium 10.3 mg/dL (8.5-10.5)
[2023-02-14 11:23] LABS: Anion Gap 20.2 (5-19); Blood Urea Nitrogen 9 mg/dL (8-23); Calcium 10.2 mg/dL (8.5-10.5); Carbon Dioxide 26 mmol/L (22-29); Globulin 3.8 g/dL (1.3-4.6); Glomerular Filtration Rate 72.9 mL/min (90-130); Magnesium 2.1 mg/dL (1.7-2.3); Osmolality Calculated 293 mOsm/kg (285-295); Total Bilirubin 0.6 mg/dL (0.15-1.2); Total Protein 8.3 g/dL (6.6-8.7)
[2023-02-14 11:32] LABS: Vitamin B12 657 pg/mL (232-1245)
[2023-02-14 12:25] LABS: Parathyroid Hormone 34.5 pg/mL (15-65)
[2023-02-16 17:10] LABS: Mutated Citrullinated Vimentin <20 U/mL (<20)
[2023-02-22 09:29] LABS: Vitamin B1(Thiamin) Plas/Ser 10 nmol/L (8-30)
== END 2023-02-14 09:43 | disposition home or self-care (01) ==
LOC: LAB 09:43
PROVIDERS: PCP Family Medicine; Visit Provider Internal Medicine
DX: R53.1 Weakness (principal)
CPT/HCPCS: 36415; 80053; 81001; 82310; 82550; 82607; 83520; 83735; 83970; 84100; 84425; 84443; 85025; 85651; 86140

== ENCOUNTER → 2023-02-27 14:55 | Outpatient (BNVA) | payer MEDICARE, OTHER, SELFPAY | PROVIDERS: PCP Family Medicine; Visit Provider Internal Medicine | DX: R53.1 Weakness (principal); M48.00 Spinal stenosis, site unspecified; R29.898 Other symptoms and signs involving the musculoskeletal system; R20.0 Anesthesia of skin; M06.9 Rheumatoid arthritis, unspecified; D64.9 Anemia, unspecified | CPT/HCPCS: 99214 ==

== ENCOUNTER 2023-02-28 07:58 | Outpatient (CLI) | payer MEDICARE, OTHER, SELFPAY ==
[2023-02-28 08:22] LABS: Basophils % 0.5 %; Hematocrit 43.2 % (36-47); Lymphocytes # 1.2 10^3/uL (0.8-4.8); Lymphocytes % 16.6 %; Mean Corpuscular HGB Conc 33.6 g/dL (30-55); Mean Corpuscular Hemoglobin 31.5 pg (27-33); Mean Corpuscular Volume 93.7 fl (85-98); Mean Platelet Volume 9.6 fL (7.4-10.4); Monocytes # 0.6 10^3/uL (0.2-0.9); Monocytes % 8.3 %; Neutrophils # 5.46 10^3/uL (1.8-7.7); Neutrophils % 74.2 %; Nucleated Red Blood Cells % 0 %; Platelet Count 253 10^3/cmm (157-399); Red Blood Count 4.61 10^6/uL (3.85-5.65); Red Cell Distribution Width 12.7 % (12.1-15.1); White Blood Count 7.36 10^3/uL (3.29-11.43)
[2023-02-28 08:31] LABS: Erythrocyte Sedimentation Rate 26 mm/hr (0-15)
[2023-02-28 08:46] LABS: Alanine Aminotransferase 14 U/L (0-33); Alkaline Phosphatase 77 U/L (35-105); Anion Gap 14.2 (5-19); Aspartate Amino Transferase 17 U/L (0-32); Blood Urea Nitrogen 13 mg/dL (8-23); Carbon Dioxide 24 mmol/L (22-29); Chloride 104 mmol/L (98-107); Creatine Phosphokinase 28 U/L (26-192); Ferritin 212 ng/mL (15-150); Glomerular Filtration Rate 72.9 mL/min (90-130); Glucose 102 mg/dL (65-115); Iron 47 ug/dL (37-145); Magnesium 1.9 mg/dL (1.7-2.3); Osmolality Calculated 286 mOsm/kg (285-295); Potassium 4.2 mmol/L (3.5-5.1); Sodium 138 mmol/L (136-145); Total Bilirubin 0.3 mg/dL (0.15-1.2)
[2023-02-28 09:01] LABS: Vitamin B12 573 pg/mL (232-1245)
== END 2023-02-28 07:59 | disposition home or self-care (01) ==
LOC: LAB 07:59
PROVIDERS: PCP Family Medicine; Visit Provider Internal Medicine
DX: R53.1 Weakness (principal); M48.00 Spinal stenosis, site unspecified; R29.898 Other symptoms and signs involving the musculoskeletal system; R20.0 Anesthesia of skin; M06.9 Rheumatoid arthritis, unspecified; D64.9 Anemia, unspecified
CPT/HCPCS: 36415; 80053; 82550; 82607; 82728; 83540; 83735; 84100; 85025; 85651; 86140

== ENCOUNTER 2023-03-21 07:51 | Outpatient (CLI) | payer MEDICARE, OTHER, SELFPAY ==
--- NOTE | 2023-03-21 08:00 | MR_ITS ---
WS: [id number] MRI LUMBAR SPINE NONCONTRAST TECHNIQUE: Sagittal T1, T2 and STIR imaging. Axial T1 and T2 imaging. CLINICAL INFORMATION: M48.00 - Spinal stenosis, site unspecified COMPARISON: MRI 08/10/2021 FINDINGS: Mild lumbar curve. No acute compression. Slight anterolisthesis L3 on L4 unchanged. Disc bulging L4-5 with a small annular fissure appears stable. New LEFT L3-4 synovial cyst impinges the LEFT subarticu lar recess and traversing LEFT L4 nerve root in the subarticular recess. Synovial cyst measures 6.5 m m. L1-L2: Mild facet arthropathy. Spinal canal and foramen are patent. L2-L3: Slight retrolisthesis. Mild facet arthropathy. Spinal canal and foramen are patent. L3-L4: Grade 1 anterolisthesis. Mild central canal stenosis. New LEFT synovial cyst impinges the nolberto ersing LEFT L4 nerve root in the subarticular recess. Mild LEFT foraminal narrowing. Moderate facet a rthropathy. L4-L5: Mild annular bulging. Small annular fissure. Central protrusion impinges the traversing L5 ner ve roots bilaterally. Mild LEFT foraminal narrowing. Moderate facet arthropathy. L5-S1: Slight anterolisthesis. Mild disc bulging with slight contact of the traversing S1 nerve roots bilaterally. Mild facet arthropathy. Foramen are patent. Visualized pelvic bony structures: Normal. Paravertebral soft tissues: Normal. IMPRESSION: 1. New LEFT L3-4 synovial cyst measuring 6 mm impinges the LEFT subarticular recess and traversing L EFT L4 nerve root. Mild central canal stenosis. Mild LEFT L3-4 foraminal narrowing. 2. Stable shallow protrusion L4-5 with a small annular fissure with slight impingement traversing L5 nerve roots. 3. Mild disc bulge L5-S1 with slight contact of the traversing S1 nerve roots. 4. Mild LEFT L4-5 foraminal narrowing. 5. Mild to moderate facet arthropathy L3-L5.
== END 2023-03-21 07:52 | disposition home or self-care (01) ==
PROVIDERS: PCP Family Medicine; Visit Provider Internal Medicine
DX: M48.061 Spinal stenosis, lumbar region without neurogenic claudication (principal); M71.38 Other bursal cyst, other site; M51.26 Other intervertebral disc displacement, lumbar region; M51.37 Other intervertebral disc degeneration, lumbosacral region; M47.816 Spondylosis without myelopathy or radiculopathy, lumbar region; R53.1 Weakness; R29.898 Other symptoms and signs involving the musculoskeletal system; R20.0 Anesthesia of skin; M06.9 Rheumatoid arthritis, unspecified
CPT/HCPCS: 72148

== ENCOUNTER → 2023-05-05 07:56 | Outpatient (BNVA) | payer MEDICARE, OTHER, SELFPAY | PROVIDERS: PCP Family Medicine; Referring Provider Family Medicine; Visit Provider Orthopaedic Surgery | DX: M48.062 Spinal stenosis, lumbar region with neurogenic claudication; M71.38 Other bursal cyst, other site; M06.9 Rheumatoid arthritis, unspecified; R53.1 Weakness | CPT/HCPCS: 99214 ==

== ENCOUNTER 2023-06-07 10:35 | Outpatient (CLI) | payer MEDICARE, OTHER, SELFPAY ==
[2023-06-07 11:45] LABS: Basophils % 0.3 %; Eosinophils # 0.2 10^3/uL (0.0-0.8); Eosinophils % 2.6 %; Hematocrit 43.7 % (36-47); Lymphocytes # 1.9 10^3/uL (0.8-4.8); Lymphocytes % 28.7 %; Mean Corpuscular HGB Conc 32.5 g/dL (30-55); Mean Corpuscular Hemoglobin 31.6 pg (27-33); Mean Corpuscular Volume 97.1 fl (85-98); Mean Platelet Volume 9.9 fL (7.4-10.4); Monocytes # 0.4 10^3/uL (0.2-0.9); Monocytes % 6.5 %; Neutrophils # 3.98 10^3/uL (1.8-7.7); Neutrophils % 61.6 %; Nucleated Red Blood Cells % 0 %; Platelet Count 249 10^3/cmm (157-399); Red Cell Distribution Width 13.2 % (12.1-15.1); White Blood Count 6.47 10^3/uL (3.29-11.43)
[2023-06-07 11:59] LABS: Erythrocyte Sedimentation Rate 25 mm/hr (0-15)
[2023-06-07 12:10] LABS: Alanine Aminotransferase 32 U/L (0-33); Albumin Level 4.1 g/dL (3.5-5.2); Alkaline Phosphatase 63 U/L (35-105); Aspartate Amino Transferase 26 U/L (0-32); Globulin 2.8 g/dL (1.3-4.6); Glomerular Filtration Rate 85.1 mL/min (90-130); Total Bilirubin 0.5 mg/dL (0.15-1.2); Total Protein 6.9 g/dL (6.6-8.7)
== END 2023-06-07 10:36 ==
LOC: LAB 10:36
PROVIDERS: PCP Family Medicine; Visit Provider Internal Medicine Rheumatology
DX: M35.00 Sjogren syndrome, unspecified (principal); M32.9 Systemic lupus erythematosus, unspecified; M06.9 Rheumatoid arthritis, unspecified; M48.062 Spinal stenosis, lumbar region with neurogenic claudication; M47.816 Spondylosis without myelopathy or radiculopathy, lumbar region
CPT/HCPCS: 36415; 80076; 82565; 85025; 85651; 86140; 99204

== ENCOUNTER → 2023-06-28 12:48 | Outpatient (BNVA) | payer MEDICARE, OTHER, SELFPAY | PROVIDERS: PCP Family Medicine; Visit Provider Anesthesiology Pain Medicine | DX: M54.16 Radiculopathy, lumbar region (principal); M48.062 Spinal stenosis, lumbar region with neurogenic claudication | CPT/HCPCS: 64483; 64484; J1100; J3490 ==

== ENCOUNTER → 2023-07-03 13:51 | Outpatient (BNVA) | payer MEDICARE, OTHER, SELFPAY | PROVIDERS: PCP Family Medicine; Visit Provider Internal Medicine Rheumatology | DX: M05.79 Rheumatoid arthritis with rheumatoid factor of multiple sites without organ or systems involvement; M35.00 Sjogren syndrome, unspecified; Z79.899 Other long term (current) drug therapy; R76.8 Other specified abnormal immunological findings in serum | CPT/HCPCS: 99214 ==

== ENCOUNTER → 2023-07-11 09:57 | Outpatient (BNVA) | payer MEDICARE, OTHER, SELFPAY | PROVIDERS: PCP Family Medicine; Visit Provider Anesthesiology Pain Medicine | DX: M54.2 Cervicalgia (principal); G89.29 Other chronic pain; M48.062 Spinal stenosis, lumbar region with neurogenic claudication; M47.816 Spondylosis without myelopathy or radiculopathy, lumbar region | CPT/HCPCS: 99215 ==

== ENCOUNTER 2023-07-28 10:08 | Outpatient (CLI) | payer MEDICARE, OTHER, SELFPAY ==
--- NOTE | 2023-07-28 10:14 | XR_ITS ---
WS: [id number] Cervical spine, 4 views, 07/28/2023 Clinical Data: M54.2 - Cervicalgia Comparison: Cervical spine, 06/23/2020 Findings: No compression fractures are seen. There is degenerative disc narrowing at C6-C7 with anter ior and posterior osteophytes. There is no prevertebral soft tissue swelling. The odontoid is unrema rkable. The soft tissues of the neck and the lung apices are normal. XR/XR cervical spine 3V* [id number] Impression: Disc narrowing at C6-C7 with osteophytes.
== END 2023-07-28 10:09 | disposition home or self-care (01) ==
LOC: RAD 10:10
PROVIDERS: PCP Family Medicine; Visit Provider Anesthesiology Pain Medicine
DX: M25.78 Osteophyte, vertebrae (principal); M54.2 Cervicalgia; G89.29 Other chronic pain
CPT/HCPCS: 72040

== ENCOUNTER → 2023-08-10 09:05 | Outpatient (BNVA) | payer MEDICARE, OTHER, SELFPAY | PROVIDERS: PCP Family Medicine; Visit Provider Anesthesiology Pain Medicine | DX: M48.062 Spinal stenosis, lumbar region with neurogenic claudication (principal); M47.816 Spondylosis without myelopathy or radiculopathy, lumbar region | CPT/HCPCS: 99215 ==

== ENCOUNTER → 2023-10-12 14:51 | Outpatient (BNVA) | payer MEDICARE, OTHER, SELFPAY | PROVIDERS: PCP Family Medicine; Visit Provider Dermatology | DX: L57.0 Actinic keratosis (principal); L72.0 Epidermal cyst; R21 Rash and other nonspecific skin eruption; D23.72 Other benign neoplasm of skin of left lower limb, including hip; L81.4 Other melanin hyperpigmentation; L82.1 Other seborrheic keratosis | CPT/HCPCS: 17000; 99203 ==

== ENCOUNTER 2023-10-30 11:24 | Outpatient (CLI) | payer MEDICARE, OTHER, SELFPAY ==
[2023-10-30 12:10] LABS: Basophils % 0.6 %; Eosinophils % 0.4 %; Hematocrit 42.8 % (36-47); Lymphocytes # 2.1 10^3/uL (0.8-4.8); Lymphocytes % 39.5 %; Mean Corpuscular HGB Conc 33.9 g/dL (30-55); Mean Corpuscular Hemoglobin 31.3 pg (27-33); Mean Corpuscular Volume 92.2 fl (85-98); Mean Platelet Volume 10.4 fL (7.4-10.4); Monocytes # 0.4 10^3/uL (0.2-0.9); Monocytes % 7.1 %; Neutrophils # 2.72 10^3/uL (1.8-7.7); Neutrophils % 52.2 %; Nucleated Red Blood Cells % 0 %; Platelet Count 210 10^3/cmm (157-399); Red Blood Count 4.64 10^6/uL (3.85-5.65); Red Cell Distribution Width 12.1 % (12.1-15.1); White Blood Count 5.21 10^3/uL (3.29-11.43)
[2023-10-30 12:28] LABS: Alanine Aminotransferase 11 U/L (0-33); Albumin Level 4.2 g/dL (3.5-5.2); Alkaline Phosphatase 63 U/L (35-105); Aspartate Amino Transferase 19 U/L (0-32); Globulin 3.1 g/dL (1.3-4.6); Glomerular Filtration Rate 84.8 mL/min (90-130); Total Bilirubin 0.4 mg/dL (0.15-1.2); Total Protein 7.3 g/dL (6.6-8.7)
== END 2023-10-30 11:25 | disposition home or self-care (01) ==
LOC: LAB 11:26
PROVIDERS: PCP Family Medicine; Visit Provider Internal Medicine Rheumatology
DX: M06.9 Rheumatoid arthritis, unspecified (principal)
CPT/HCPCS: 36415; 80076; 82565; 85025; 86140

== ENCOUNTER → 2023-11-13 14:12 | Outpatient (BNVA) | payer MEDICARE, OTHER, SELFPAY | PROVIDERS: PCP Family Medicine; Visit Provider Internal Medicine Rheumatology | DX: M05.79 Rheumatoid arthritis with rheumatoid factor of multiple sites without organ or systems involvement (principal); M35.00 Sjogren syndrome, unspecified; Z79.899 Other long term (current) drug therapy; R76.8 Other specified abnormal immunological findings in serum | CPT/HCPCS: 99214 ==

== ENCOUNTER 2024-04-01 14:42 | Outpatient (CLI) | payer MEDICARE, OTHER, SELFPAY ==
[2024-04-01 16:00] LABS: Alanine Aminotransferase 11 U/L (0-33); Albumin Level 4.2 g/dL (3.5-5.2); Alkaline Phosphatase 68 U/L (35-105); Anion Gap 14.2 (5-19); Aspartate Amino Transferase 17 U/L (0-32); Blood Urea Nitrogen 14 mg/dL (8-23); Calcium 9.6 mg/dL (8.5-10.5); Carbon Dioxide 27 mmol/L (22-29); Chloride 105 mmol/L (98-107); Ferritin 132 ng/mL (15-150); Globulin 3.3 g/dL (1.3-4.6); Glomerular Filtration Rate 84.8 mL/min (90-130); Glucose 95 mg/dL (65-115); Iron 76 ug/dL (37-145); Osmolality Calculated 294 mOsm/kg (285-295); Percent Saturation 23.9 % (20-50); Potassium 4.2 mmol/L (3.5-5.1); Sodium 142 mmol/L (136-145); Thyroid Stimulating Hormone 2.77 uIU/mL (0.27-4.20); Total Bilirubin 0.5 mg/dL (0.15-1.2); Total Iron Binding Capacity 317 mcg/dl; Total Protein 7.5 g/dL (6.6-8.7); Unsaturated Iron Binding 241 ug/dL (112-347); Vitamin B12 435 pg/mL (232-1245)
[2024-04-01 16:01] LABS: Folate Level 8.8 ng/mL (4.8-37.3)
== END 2024-04-01 14:43 | disposition home or self-care (01) ==
LOC: LAB 14:44
PROVIDERS: Nurse Practitioner Family; PCP Family Medicine; Visit Provider Family Medicine
DX: L65.0 Telogen effluvium (principal); L72.0 Epidermal cyst
CPT/HCPCS: 36415; 80053; 82607; 82728; 82746; 83540; 83550; 84439; 84443; 84630

== ENCOUNTER → 2024-05-13 12:45 | Outpatient (BNVA) | payer MEDICARE, OTHER, SELFPAY | PROVIDERS: PCP Family Medicine; Visit Provider Internal Medicine Rheumatology | DX: M05.79 Rheumatoid arthritis with rheumatoid factor of multiple sites without organ or systems involvement (principal); M35.00 Sjogren syndrome, unspecified; Z79.899 Other long term (current) drug therapy; R76.8 Other specified abnormal immunological findings in serum | CPT/HCPCS: 99214 ==

== ENCOUNTER → 2024-10-16 08:39 | Outpatient (BNVA) | payer MEDICARE, OTHER, SELFPAY | PROVIDERS: PCP Family Medicine; Visit Provider Nurse Practitioner Family | DX: L65.9 Nonscarring hair loss, unspecified (principal); L72.0 Epidermal cyst; L81.4 Other melanin hyperpigmentation; L82.1 Other seborrheic keratosis; D23.71 Other benign neoplasm of skin of right lower limb, including hip; L57.8 Other skin changes due to chronic exposure to nonionizing radiation; X32.XXXA Exposure to sunlight, initial encounter | CPT/HCPCS: 99213 ==

== ENCOUNTER → 2024-11-20 09:26 | Outpatient (BNVA) | payer MEDICARE, OTHER, SELFPAY | PROVIDERS: PCP Family Medicine; Visit Provider Family Medicine | DX: M54.9 Dorsalgia, unspecified (principal); R35.0 Frequency of micturition | CPT/HCPCS: 81000 ==